=== PATIENT | male | born 1940 | race Caucasian/White ===

== ENCOUNTER → 2017-02-11 | Outpatient (CLI) | payer OTHER ==
[~2017-02-11] MED LIST: AMAN100C18 PO; ASPI-391 PO; BACL10TA PO; CARB25TA12 PO; CHOL100010 PO; DOCU-94 PO; DONE5TAB14 PO; MIRT15TA2 PO; RXC5 PO; SIMV10TA2 PO; TAMS0.4C38 PO
[2017-02-11 13:17] LABS: BASO % 0.3 %; BASO ABS # 0.02 K/uL (0-0.2); COMPLETE YES; EOS % 1.8 %; HEMATOCRIT 42.6 % (42-52); IG% 0.2 %; LYMPH % 22.5 %; MEAN CORPUSCULAR HEMOGLOBIN 32.2 pg (25-34); MONO % 10.6 %; NEUT % 64.6 %; PLATELET COUNT 213 K/uL (130-400); RED BLOOD COUNT 4.63 M/uL (4.7-6.1); WHITE BLOOD COUNT 6.23 K/uL (4.8-10.8)
[2017-02-11 13:26] LABS: ALT/SGPT 13 U/L (12-78); AST/SGOT 14 U/L (15-37); BLOOD UREA NITROGEN 14 mg/dl (7-18); BUN/CREATININE RATIO 14.5 (10-20); CALCIUM 8.8 mg/dl (8.5-10.1); CARBON DIOXIDE 27 mmol/L (21-32); CHLORIDE 110 mmol/L (98-107); CHOLESTEROL 141 mg/dl (0-200); CREATININE 0.97 mg/dl (0.60-1.40); GLUCOSE 89 mg/dl (70-99); POTASSIUM 4.1 mmol/L (3.5-5.1); SODIUM 143 mmol/L (136-145)
[2017-02-11 13:28] LABS: ALB/GLOB RATIO 1.2 (0.9-2); ALKALINE PHOSPHATASE 138 U/L (45-117); CHOLESTEROL/HDL RATIO 2.9; HDL CHOLESTEROL 48 mg/dl; TRIGLYCERIDES 84 mg/dl (0-150); VERY LOW DENSITY LIPOPROT CALC 17 mg/dl
== END | disposition home or self-care (01) ==
LOC: C.LABSPEC 08:45
PROVIDERS: ATTEND Internal Medicine
DX: Z00.00 Encounter for general adult medical examination without abnormal findings (principal); G20 Parkinson's disease; E78.5 Hyperlipidemia, unspecified

== ENCOUNTER → 2017-02-21 | Outpatient (CLI) | payer OTHER | END | disposition home or self-care (01) | LOC: C.LABSPEC 12:33 | PROVIDERS: ATTEND Internal Medicine | DX: Z12.11 Encounter for screening for malignant neoplasm of colon (principal) ==

== ENCOUNTER → 2018-03-02 | Outpatient (CLI) | payer OTHER | END | disposition home or self-care (01) | LOC: C.PATHSPEC 17:33 | PROVIDERS: ATTEND Internal Medicine | DX: C44.310 Basal cell carcinoma of skin of unspecified parts of face (principal) ==

== ENCOUNTER 2022-01-15 08:31 | Inpatient (IN) ==
--- NOTE | 2021-12-31 14:01 | PAT Medication Instructions ---
Medication Instructions Date of Service December 31, 2021 Home Medications amantadine HCl 100 mg tablet 100 mg PO QAM bxgcttn-lluacqybtfqds-oyijwdqz 250 mg-250 mg-65 mg tablet (Excedrin Extra Strength) 1 tab PO Q6H PRN carbidopa 25 mg-levodopa 100 mg tablet 1 tab PO BID cholecalciferol (vitamin D3) 50 mcg (2,000 unit) capsule (Vitamin D3) 50 mcg PO QAM docusate sodium 100 mg capsule 100 mg PO BID PRN donepezil 10 mg tablet 10 mg PO HS mirtazapine 15 mg tablet 15 mg PO HS sertraline 50 mg tablet 50 mg PO HS simvastatin 10 mg tablet 10 mg PO PM tamsulosin 0.4 mg capsule 0.4 mg PO QPM Continue as directed amantadine HCl 100 mg tablet 100 mg PO QAM ASK your surgeon for instructions djtkteq-zshpabjmijcxm-mwvchuoe 250 mg-250 mg-65 mg tablet (Excedrin Extra Strength) 1 tab PO Q6H PRN ASK your prescriber and surgeon mirtazapine 15 mg tablet 15 mg PO HS DO NOT take the morning of surgery cholecalciferol (vitamin D3) 50 mcg (2,000 unit) capsule (Vitamin D3) 50 mcg PO QAM docusate sodium 100 mg capsule 100 mg PO BID PRN Take morning of surgery With a small sip of water, OTHERWISE NOTHING TO EAT OR DRINK AFTER MIDNIGHT: carbidopa 25 mg-levodopa 100 mg tablet 1 tab PO BID Take evening before surgery carbidopa 25 mg-levodopa 100 mg tablet 1 tab PO BID docusate sodium 100 mg capsule 100 mg PO BID PRN (if needed) donepezil 10 mg tablet 10 mg PO HS sertraline 50 mg tablet 50 mg PO HS simvastatin 10 mg tablet 10 mg PO PM tamsulosin 0.4 mg capsule 0.4 mg PO QPM Other Notes If you have any questions please call us at [phone] or [phone] or [phone] or [phone]
--- NOTE | 2022-01-01 13:04 | Anesthesiology Consultation ---
Date of Service January 01, 2022 Assessment & Plan (1) Encounter for pre-operative examination: - COVID screening: Per assessment on 01/01: No known COVID-19 positive contacts or current COVID-19 related symptoms. Travel screen negative. Patient vaccinated. Surgeon arranging preop COVID testing. Awaiting results. - S/P C4 corpectomy, ACDF C5-7 (02/05/16): MAC#3, ETT 8 at [facility]. Mild, asymptomatic post-op tachycardia + also sore throat. Discharged on POD 3 without further issue/intervention. Chart Review Chart Review: Acceptable Risk for Surgery and Patient seen in Pre Admission Testing Teaching & Discussion Pre-Anesthesia Teaching/Discussion Notes: Instructed NPO after midnight before surgery,except medications with 15 cc of water. Medication instructions provided according to the PAT guidelines. History Surgery Operation Date: 01/15/22 10:05 Proposed Procedures p L4-S1 Decompression and Fusion Spinal Cord Monitoring - Rahat Fernandez, Height/Weight Height: 5 ft 6 in Weight: 63.5 kg Allergies Allergy/AdvReac Type Severity Reaction Status Date / Time Antiseptic solution Allergy Severe Uncoded 01/01/22 14:41 skin reaction/sensitivity with prior preop cleanser Medications Home Medications Medication Instructions Recorded Confirmed Last Taken amantadine HCl 100 mg tablet 100 mg PO QAM 12/31/21 12/31/21 Unknown axroaks-lyjcsohtesbdu-fyvhuarl 250 1 tab PO Q6H PRN 12/31/21 12/31/21 Unknown mg-250 mg-65 mg tablet (Excedrin Extra Strength) carbidopa 25 mg-levodopa 100 mg 1 tab PO BID 12/31/21 12/31/21 Unknown tablet cholecalciferol (vitamin D3) 50 50 mcg PO QAM 12/31/21 12/31/21 Unknown mcg (2,000 unit) capsule (Vitamin D3) docusate sodium 100 mg capsule 100 mg PO BID PRN 12/31/21 12/31/21 Unknown donepezil 10 mg tablet 10 mg PO HS 12/31/21 12/31/21 Unknown mirtazapine 15 mg tablet 15 mg PO HS 12/31/21 12/31/21 Unknown sertraline 50 mg tablet 50 mg PO HS 12/31/21 12/31/21 Unknown simvastatin 10 mg tablet 10 mg PO PM 12/31/21 12/31/21 Unknown tamsulosin 0.4 mg capsule 0.4 mg PO QPM 12/31/21 12/31/21 Unknown Past Medical History Medical History Anxiety Cancer BCC Cervical stenosis of spinal canal Enlarged prostate Hyperlipidemia Lumbar stenosis Migraine Hx Parkinson's disease Follows with Dr. Margo Macedo ([facility]) Deep brain stimulator ([employer], Will bring remote AM DOS) [employer] rep per pt > Tiffani Jewell, P: [phone] Exercise / Class Metabolic Activity III < 4 Walking/Shop/Light housework Past Family History Family History Father Family history of diabetes mellitus Uncle Family history of diabetes mellitus Past Surgical History Surgical History Elective surgery PLACEMENT DEEP BRAIN STIMULATOR (2016) REPLACEMENT BATTERIES (2020) History of cervical spinal surgery C4 corpectomy, ACDF C5-7 (02/05/16): MAC#3, ETT 8 at [facility]. Mild, asymptomatic post-op tachycardia + also sore throat. Discharged on POD 3 without further issue. History of colonoscopy Past Anesthesia History No Hx of Anesthesia Complications and No Family Hx of Anesthesia Complications History of PONV No Hx of PONV and No Hx of Motion Sickness Social History Smoking Status: Former smoker Do You Dip or Chew Tobacco: No Smoking End Date: Quit 45 years ago Hx Alcohol Use: No Hx Substance Use: No Review of Systems Patient denies chest pain, shortness of breath, fever, chills, cough, wheezing, palpitations. Physical Exam Vital Signs VITALS BP 102/67 (baseline BP low-normal range) P 70 TEMP SP02 98%RA RESP 16 PHYSICAL Mildly decreased cervical extension range of motion. Full TMJ range of motion. TMD 3.5 finger breaths Mallampati Score 2 Dentition: intact, + crowns/caps Lungs: clear throughout to auscultation Cardiac: regular rate and rhythm, no murmurs noted Spine: normal Carotid arteries: negative bruit Extremities: no edema Lab Results Anesthesia Preop Results Results Anesthesia Widget: WBC 7.39 K/uL (4.8-10.8) 01/01/22 Hgb 14.1 g/dL (14.0-18.0) 01/01/22 Hct 40.3 % (42-52) L 01/01/22 Plt 237 K/uL (130-400) 01/01/22 Na 139 mmol/L (136-145) 01/01/22 K 4.1 mmol/L (3.5-5.1) 01/01/22 Cl 106 mmol/L (98-107) 01/01/22 CO2 28 mmol/L (21-32) 01/01/22 BUN 17 mg/dl (6-23) 01/01/22 Creat 1.00 mg/dl (0.6-1.4) 01/01/22 Glucose Level 124 mg/dl (70-99(Fasting)) H 01/01/22 PT 10.6 Seconds (9.0-12.0) 01/01/22 PTT 24.8 Seconds (21.0-31.0) 01/01/22 INR 1.0 (0.9-1.1) 01/01/22 Urine Color Yellow 01/01/22 Urine Appearance Clear (Clear) 01/01/22 Urine pH 7.5 (4.5-7.5) 01/01/22 Urine Specific [place] 1.022 (1.000-1.030) 01/01/22 Urine Protein Negative (Negative) 01/01/22 Urine Glucose (UA) Negative (Negative) 01/01/22 Urine Ketones Trace (Negative) H 01/01/22 Urine Blood Negative (Negative) 01/01/22 Urine Nitrite Negative (Negative) 01/01/22 Urine Bilirubin Negative (Negative) 01/01/22 Urine Urobilinogen Negative (Negative) 01/01/22 Urine Leukocyte Esterase 3+ (Negative) H 01/01/22 Urine WBC (Auto) 10-30 /hpf (0-5) H 01/01/22 Urine RBC (Auto) 0-4 /hpf (0-4) 01/01/22 Urine Hyaline Casts (Auto) 1-5 /lpf (0-5) 01/01/22 Urine Epithelial Cells (Auto) 10-20 /lpf (0-5) H 01/01/22 Urine Bacteria (Auto) Negative (Negative) 01/01/22 Blood Type A Positive 01/01/22 Antibody Screen NEGATIVE 01/01/22 Testing Electrocardiogram Date: 01/01/22 NSR at 63bpm. RBBB. Chest X-Ray Date: 01/01/22 FINDINGS: No pneumothorax. No pleural effusions. The heart is normal in size. The lungs are clear. Cervical spinal fusion hardware is noted. Stimulator packs are noted within the upper chest. IMPRESSION: No acute process.
[~2022-01-15 08:31] MED LIST changes: +ACETAMINOPHEN 500 MG TAB PO SCH; -AMAN100C18 PO; -ASPI-391 PO; -BACL10TA PO; -CARB25TA12 PO; -CHOL100010 PO; +CeleBREX 200 MG CAP PO SCH; -DOCU-94 PO; -DONE5TAB14 PO; +GABAPENTIN 300 MG CAP PO SCH; +LR 15ML/HR IV SCH; -MIRT15TA2 PO; -RXC5 PO; -SIMV10TA2 PO; -TAMS0.4C38 PO; +ceFAZolin 1000MG 1,000 MG/7.5 ML SYR IV SCH
[2022-01-15] MEDS ORDERED: PROPOFOL IV EMULSION 10 MG/ML 20 ML VIAL IV ONE (08:54)
[2022-01-15] MEDS ORDERED: MIDAZOLAM HCL 1 MG/ML 2ML VIAL ONE (08:54)
[2022-01-15] MEDS ORDERED: LIDOCAINE 2% 2 ML VIAL/AMP(20MG/ML) INFIL ONE (08:54)
[2022-01-15] MEDS ORDERED: fentaNYL citrate 100 MCG/2 ML VIAL ONE (08:54)
[2022-01-15] MEDS ORDERED: ROCURONIUM BROMIDE 10 MG/ML 5 ML VIAL IV ONE (08:54)
[2022-01-15] MEDS ORDERED: ATROPINE SULFATE 0.1 MG/ML 10ML SYR IV PRN (09:42)
[2022-01-15] MEDS ORDERED: ePHEDrine sulfate 50 MG/ML AMP IV PRN (09:42)
[2022-01-15] MEDS ORDERED: ONDANSETRON INJ 2 MG/ML 2 ML VIAL IV PRN ×2 (09:42→14:49)
[2022-01-15] MEDS ORDERED: fentaNYL citrate 100 MCG/2 ML VIAL IV PRN (09:42)
[2022-01-15] MEDS ORDERED: HYDROmorphone INJ 1 MG/ML SYRINGE IV PRN ×2 (09:42→14:49)
--- NOTE | 2022-01-15 10:00 | History & Physical Bridge Note ---
Date of Service January 15, 2022 History & Physical Bridge Note I have examined the patient, reviewed the History & Physical and in the interval since the performance of the History & Physical I have noted the following changes of clinical significance: no changes noted
--- NOTE | 2022-01-15 10:03 | History & Physical Report ---
Date of Service January 15, 2022 Assessment & Plan (1) Neurogenic claudication due to lumbar spinal stenosis: Plan: L4-S1 decompression and fusion History of Present Illness Chief Complaint: Back and leg pain Primary Care Provider: Polina Hoang This is an 81-year-old male with presents with chronic back and leg pain after failing course of nonoperative care is here for surgical invention. Allergies Allergy/AdvReac Type Severity Reaction Status Date / Time Antiseptic solution Allergy Intermediate Severe Uncoded 01/15/22 09:11 skin reaction/sensitivity with prior preop cleanser Home Medications Medication Instructions Recorded Confirmed Type amantadine HCl 100 mg tablet 100 mg PO QAM 12/31/21 01/15/22 History dhkprhn-hbjqsbhunyvhh-yhedaucp 250 1 tab PO Q6H PRN 12/31/21 01/15/22 History mg-250 mg-65 mg tablet (Excedrin Extra Strength) carbidopa 25 mg-levodopa 100 mg 1 tab PO BID 12/31/21 01/15/22 History tablet cholecalciferol (vitamin D3) 50 50 mcg PO QAM 12/31/21 01/15/22 History mcg (2,000 unit) capsule (Vitamin D3) docusate sodium 100 mg capsule 100 mg PO BID PRN 12/31/21 01/15/22 History donepezil 10 mg tablet 10 mg PO HS 12/31/21 01/15/22 History mirtazapine 15 mg tablet (Remeron) 15 mg PO HS 12/31/21 01/15/22 History sertraline 50 mg tablet 50 mg PO HS 12/31/21 01/15/22 History simvastatin 10 mg tablet 10 mg PO PM 12/31/21 01/15/22 History tamsulosin 0.4 mg capsule 0.4 mg PO QPM 12/31/21 01/15/22 History Past Med/Surg History Medical History Anxiety Cancer BCC Cervical stenosis of spinal canal Enlarged prostate Hyperlipidemia Lumbar stenosis Migraine Hx Parkinson's disease Follows with Dr. Margo Macedo ([facility]) Deep brain stimulator ([employer], Will bring remote AM DOS) [employer] rep per pt > Tiffani Jewell, P: [phone] Surgical History Elective surgery PLACEMENT DEEP BRAIN STIMULATOR (2016) REPLACEMENT BATTERIES (2020) History of cervical spinal surgery C4 corpectomy, ACDF C5-7 (02/05/16): MAC#3, ETT 8 at [facility]. Mild, asymptomatic post-op tachycardia + also sore throat. Discharged on POD 3 without further issue. History of colonoscopy Family History Father Family history of diabetes mellitus Uncle Family history of diabetes mellitus Social History (Updated 12/31/21 @ 11:19 by Loni Hoover, RN) Smoking Status: Former smoker Smoking End Date: Quit 45 years ago; Second Hand Exposure: Yes; Do You Dip or Chew Tobacco: No; Hx Alcohol Use: No Hx Substance Use: No Preferred Language: [place] African Communication Ability: Effective Rhit Required: No Beliefs That Will Affect Care: None marital status: Current Living Situation: Spouse Current Living Situation Comment: [facility] current occupational status: retired current occupation: RETIRED PHARMACIST Other Information That Helps Us Care for You: No Feels Safe at Home: Yes Safety Concerns: Feels Safe At This Time Assistive Devices: Glasses and Walker Physical Exam Physical Exam: Patient is alert and oriented Heart regular rhythm Lungs clear Results & Data Results & Data ([facility]) Vital Signs (Past 12 Hours) Vital Signs Temp Pulse Resp BP Pulse Ox 01/15/22 09:22 36.5 C 63 18 109/69 98
[2022-01-15] MEDS ORDERED: BUPIVACAINE/EPINEPHRINE 0.25% 1:200,000 30 ML VIAL ONE (10:21)
[2022-01-15] MEDS ORDERED: ceFAZolin 330 MG/ML 1 GM VIAL ONE (10:22)
[2022-01-15] MEDS ORDERED: ePHEDrine sulfate 50 MG/ML AMP ONE (11:06)
[2022-01-15] MEDS ORDERED: ONDANSETRON INJ 2 MG/ML 2 ML VIAL ONE (11:16)
[2022-01-15] MEDS ORDERED: DEXAMETHASONE SOD INJ 4 MG/ML VIAL ONE (11:16)
[2022-01-15] MEDS ORDERED: FLOSEAL HEMOSTATIC MATRIX 10ML TOP ONE (11:24)
[2022-01-15] MEDS ORDERED: VASOPRESSIN 20 UNIT/ML VIAL ONE (11:31)
[2022-01-15] MEDS ORDERED: GLYCOPYRROLATE 0.2 MG/ML VIAL ONE ×2 (11:31→12:36)
--- NOTE | 2022-01-15 12:33 | Operative Report ---
Post Operative Report Pre & Post Diagnosis Operation Date: 01/15/22 10:05 Pre-Op Diagnosis: Neurogenic claudication due to lumbar spinal stenosis. Post-Op Diagnosis: Neurogenic claudication due to lumbar spinal stenosis. I identified the patient and participated in the time-out.: Yes Procedure Operation Date: 01/15/22 10:05 Actual Procedures Decompression with bilateral medial facetectomies and foraminotomies L3-L4, L4- L5 and L5-S1. #2 posterior spinal fusion L4-S1. #3 placement posterior instrumentation L4 L5-S1. #4 placement locally harvested morselized autograft in the posterior gutters. #5 placement of I factor combined with the talus in the posterior gutters L4-S1. Surgeon Rahat Fernandez, DO Printing Roller Handler Trever Ferguson Estimated Blood Loss 100 Findings Consistent with Post-Op Diagnosis Specimens None Indications This is a 81-year-old male well-known to me the presents with neurogenic medication after failing course of nonoperative care is here for surgical intervention. Description of Procedure Patient was met with identified informed consent obtained. Patient was then taken to the operative suite underwent ablation placed in a prone position the [place] table top [place] frame. All bony prominences well-padded eyes inspected to ensure no external pressure placed upon the. This point lumbar spine was prepped and draped in normal sterile fashion. Sharp dissection with the assistance of Bovie cautery was performed down to and exposing the lamina fox sverse processes of L4-L5 and the sacral ala bilaterally. From a caudal to cephalad fashion complete laminectomy of L5 L4 and partial laminectomy of L3 was performed including bilateral medial facetectomies and foraminotomies addressing severe spinal stenosis. Pedicle screws were then placed in L4-L5 and S1 levels with the exception of L5 on the right as it was too sclerotic to hold a screw. Proper size rods were then placed locked into position bilaterally. The transverse processes of L 4 L5 and sacral ala burred to subcortical being bone. Locally harvested morselized autograft I factor and V toss was then placed in the posterior gutters. 15 round LIZA drain inserted. The incision was then closed with 1 Vicryl to fascia 2-0 Vicryl subcutaneously and 4 Monocryl for final skin closure. Steri-Strip sterile dressings placed. Patient waken taken PACU stable condition. Please note Trever Ferguson was present out the entire procedure involved the patient positioning complex portions of the surgery and fascial closure. I attest to the content of the Intraoperative Record and any orders documented therein. Any exceptions are noted below.
[2022-01-15] MEDS ORDERED: NEOSTIGMINE METHYLSULFATE 1 MG/ML 10ML VIAL ONE (12:36)
--- NOTE | 2022-01-15 13:15 | Fluoroscopy Report ---
INTRAOPERATIVE RADIOGRAPHS CLINICAL HISTORY: L4-S1 spinal fusion. Fluoroscopy time: 24 seconds. FINDINGS: 2 spot fluoroscopic views of the lumbar spine are presented. There has been laminectomy and posterior fusion at L4-S1. Interpedicular screws are present at all levels. The orthopedic hardware appears intact. IMPRESSION: Intraoperative images from lumbar spinal fusion surgery as above. Electronically signed by: Den Griggs M.D. 01/15/2022 1:13 PM
--- NOTE | 2022-01-15 14:09 | Anesthesiology Progress Note ---
Date of Service January 15, 2022 Anesthesia Post Procedure Vital Signs Vital Signs: Temp Pulse Pulse Resp BP Pulse Ox 01/15/22 14:05 76 12 112/65 97 01/15/22 13:55 84 12 128/69 98 01/15/22 13:45 78 16 113/70 99 01/15/22 13:35 85 15 123/68 100 01/15/22 13:25 83 14 122/67 99 01/15/22 13:15 86 11 L 131/71 100 01/15/22 13:05 91 H 9 L 128/74 100 01/15/22 12:55 97.2 F L 98 H 14 124/75 100 01/15/22 09:22 97.7 F 63 18 109/69 98 Transfer of Care Handoff Completed per policy Notes Mental Status: alert / awake / arousable and participated in evaluation Patient Amnestic to Procedure: Yes Nausea / Vomiting: adequately controlled Pain: adequately controlled Airway Patency, RR, SpO2: stable & adequate BP & HR: stable & adequate Hydration State: stable & adequate Anesthetic Complications: no major complications apparent and Pt Satisfied with anesthetic care
[2022-01-15] MEDS ORDERED: ONDANSETRON 4 MG OD TAB PO PRN (14:49)
[2022-01-15] MEDS ORDERED: hydrOXYzine HCl 25 MG TAB PO PRN (14:49)
[2022-01-15] MEDS ORDERED: HYDROmorphone INJ 0.5 MG/0.5 ML SYR IV PRN (14:49)
[2022-01-15] MEDS ORDERED: MAGNESIUM HYDROXIDE SUSP 30 ML UDC PO PRN (14:49)
[2022-01-15] MEDS ORDERED: SOD PHOSPHATE/SOD BIPHOSPHATE ENEMA 132 ML BTL PR PRN (14:49)
[2022-01-15] MEDS ORDERED: PROMETHAZINE HCL 12.5 MG in SODIUM CHLORIDE 0.9% 50 ML IV PRN (14:49)
[2022-01-15] MEDS ORDERED: ACETAMINOPHEN 500 MG TAB PO PRN (14:49)
[2022-01-15] MEDS ORDERED: FAMOTIDINE 20 MG TAB PO PRN (14:49)
[2022-01-15] MEDS ORDERED: bisacodyL 10 MG SUPP PR PRN (14:49)
[2022-01-15] MEDS ORDERED: DO NOT ADMINISTER FLU VACCINE PRN (14:49)
[2022-01-15] MEDS ORDERED: DOCUSATE SODIUM 100 MG CAP PO PRN (14:49)
[2022-01-15] MEDS ORDERED: ALUMINUM/MAGNESIUM SUSP 30 ML UDC PO PRN (14:49)
[2022-01-15] MEDS ORDERED: oxyCODONE HCL IR 5 MG TAB (IMMEDIATE RELEASE) PO PRN (14:49)
[2022-01-15] MEDS ORDERED: LORazepam 0.5 MG TAB PO PRN (14:49)
[2022-01-15] MEDS ORDERED: DO NOT ADMINISTER PNEUMOCOCCAL VACCINE PRN (14:49)
[2022-01-15] MEDS ORDERED: LORazepam 0.5 MG in SYRINGE 0.25 ML IV PRN (14:49)
[2022-01-15] MEDS ORDERED: METOCLOPRAMIDE HCL INJ 5 MG/ML 2 ML VIAL IV PRN (14:49)
[2022-01-15] MEDS ORDERED: diphenhydrAMINE Capsule 25 MG CAP PO PRN (14:49)
[2022-01-15] MEDS ORDERED: NALOXONE HCL 0.4 MG/1 ML VIAL/CARP IV PRN (14:49)
[2022-01-15] MEDS ORDERED: ACETAMINOPHEN 1,000 MG/100 ML VIAL IV PRN (14:49)
[2022-01-15] MEDS: LACTATED RINGER'S 1,000 ML IV SCH ×2 (14:50→23:31)
[2022-01-15] MEDS ORDERED: Nursing to Pharmacy Communication SCH (17:30)
[2022-01-15] MEDS ORDERED: CARBIDOPA/LEVODOPA 25/100MG TAB PO SCH (18:00)
[2022-01-15] MEDS: ceFAZolin 1000MG 1,000 MG/7.5 ML SYR IV SCH (18:40)
[2022-01-15] MEDS: CARBIDOPA/LEVODOPA 25/100MG TAB PO SCH (18:44)
--- NOTE | 2022-01-15 19:20 | Hospitalist Consultation ---
Date of Consultation January 15, 2022 Assessment & Plan (1) Neurogenic claudication due to lumbar spinal stenosis: (2) Parkinson disease: S/p L4-S1 decompression and fusion surgery today by Dr Fernandez POD#0 EBL 100cc Pain management, activity and DVT ppx per Primary team Check CBC and BMP in AM Advance diet as appropriate Patient's reports she has turned on his DBS that was turned off for surgery. Continue carbidopa-levodopa Continue home meds Remove joe tomorrow Thank you for the consult. History of Present Illness Reason for Consultation: Post op medical management Requesting Physician: Rahat Fernandez DO Attending Physician: Rahat Fernandez DO History of Present Illness 81 year old man with history of Parkinson's disease who had L4-S1 decompression and fusion surgery today by Dr. Fernandez. Patient seen after returning from the OR. Reports minimal surgical site pain at this time. Denies nausea, vomiting, abdominal pain. Yet to pass flatus. Has bradykinesia due to his Parkinson's per who was at bedside Allergies Allergy/AdvReac Type Severity Reaction Status Date / Time Antiseptic solution Allergy Intermediate Severe Uncoded 01/15/22 09:11 skin reaction/sensitivity with prior preop cleanser Home Medications Medication Instructions Recorded Confirmed Type amantadine HCl 100 mg tablet 100 mg PO QAM 12/31/21 01/15/22 History bkqfaca-iikscwuhsmtlm-ulkzhpwj 250 1 tab PO Q6H PRN 12/31/21 01/15/22 History mg-250 mg-65 mg tablet (Excedrin Extra Strength) carbidopa 25 mg-levodopa 100 mg 1 tab PO BID 12/31/21 01/15/22 History tablet cholecalciferol (vitamin D3) 50 50 mcg PO QAM 12/31/21 01/15/22 History mcg (2,000 unit) capsule (Vitamin D3) docusate sodium 100 mg capsule 100 mg PO BID PRN 12/31/21 01/15/22 History donepezil 10 mg tablet 10 mg PO HS 12/31/21 01/15/22 History mirtazapine 15 mg tablet (Remeron) 15 mg PO HS 12/31/21 01/15/22 History sertraline 50 mg tablet 50 mg PO HS 12/31/21 01/15/22 History simvastatin 10 mg tablet 10 mg PO PM 12/31/21 01/15/22 History tamsulosin 0.4 mg capsule 0.4 mg PO QPM 12/31/21 01/15/22 History Patient History Medical History Anxiety Cancer BCC Cervical stenosis of spinal canal Enlarged prostate Hyperlipidemia Lumbar stenosis Migraine Hx Parkinson's disease Follows with Dr. Margo Macedo ([facility]) Deep brain stimulator ([employer], Will bring remote AM DOS) [employer] rep per pt > Tiffani Jewell, P: [phone] Surgical History Elective surgery PLACEMENT DEEP BRAIN STIMULATOR (2016) REPLACEMENT BATTERIES (2020) History of cervical spinal surgery C4 corpectomy, ACDF C5-7 (02/05/16): MAC#3, ETT 8 at [facility]. Mild, asymptomatic post-op tachycardia + also sore throat. Discharged on POD 3 without further issue. History of colonoscopy Family History Father Family history of diabetes mellitus Uncle Family history of diabetes mellitus Social History (Updated 12/31/21 @ 11:19 by Loni Hoover RN) Smoking Status: Former smoker Smoking End Date: Quit 45 years ago; Second Hand Exposure: Yes; Do You Dip or Chew Tobacco: No; Hx Alcohol Use: No Hx Substance Use: No Preferred Language: Citizen Of [place] Communication Ability: Effective Dish Person Required: No Beliefs That Will Affect Care: None marital status: Current Living Situation: Spouse Current Living Situation Comment: [facility] current occupational status: retired current occupation: RETIRED PHARMACIST Other Information That Helps Us Care for You: No Feels Safe at Home: Yes Safety Concerns: Feels Safe At This Time Assistive Devices: Glasses and Walker Review of Systems Review of Systems: All systems reviewed & are unremarkable except as noted in HPI & below Physical Exam Constitutional: + well hydrated; no acute distress Eyes: PERRL, conjunctivae normal, anicteric sclerae ENMT: external ear and nose normal, oropharynx normal Respiratory: normal respiratory effort, lungs clear to auscultation Cardiovascular: Rate/Rhythm: regular rate and regular rhythm S1 S2 Gastrointestinal (Abdomen): normal bowel sounds, soft, nontender, no hepatosplenomegaly Musculoskeletal: No pedal edema Drain in situ at surgical site Neurologic: PERRL, EOMI, accommodation nl, no face palsy, no dysarthria Psychiatric: A+Ox3, euthymic affect Genitourinary: Joe in situ Results & Data Results & Data ([facility]) Vital Signs (Past 12 Hours) Vital Signs Temp Pulse Pulse Resp BP Pulse Ox 01/15/22 18:00 36.2 C L 71 14 120/67 97 01/15/22 17:12 36.3 C L 85 18 106/65 97 01/15/22 16:45 67 14 108/63 97 01/15/22 16:15 36.3 C L 63 18 102/55 L 96 01/15/22 15:45 81 12 115/65 97 01/15/22 15:30 67 15 107/61 96 01/15/22 15:15 64 11 L 106/61 95 01/15/22 15:00 78 12 114/63 95 01/15/22 14:45 81 14 114/80 96 01/15/22 14:35 94 H 14 135/75 96 01/15/22 14:25 77 12 112/67 96 01/15/22 14:15 79 11 L 115/62 96 01/15/22 14:05 76 12 112/65 97 01/15/22 13:55 84 12 128/69 98 01/15/22 13:45 78 16 113/70 99 01/15/22 13:35 85 15 123/68 100 01/15/22 13:25 83 14 122/67 99 01/15/22 13:15 86 11 L 131/71 100 01/15/22 13:05 91 H 9 L 128/74 100 01/15/22 12:55 36.2 C L 98 H 14 124/75 100 01/15/22 09:22 36.5 C 63 18 109/69 98
[2022-01-15] MEDS: DOCUSATE SODIUM/SENNA 50/8.6MG TAB PO SCH (21:28)
[2022-01-15] MEDS: SERTRALINE HCL 50 MG TABLET PO SCH (21:34)
[2022-01-15] MEDS: TAMSULOSIN HCL 0.4 MG CAP PO SCH (21:34)
[2022-01-15] MEDS: SIMVASTATIN 10 MG TAB PO SCH (22:03)
[2022-01-15] MEDS: MIRTAZAPINE TAB 15 MG TAB PO SCH (22:04)
[2022-01-15] MEDS: DONEPEZIL HCL 10 MG TAB PO SCH (22:04)
[2022-01-16] MEDS: ceFAZolin 1000MG 1,000 MG/7.5 ML SYR IV SCH (02:09)
[2022-01-16] MEDS: traMADol HCL 50 MG TABLET PO PRN (03:29)
[2022-01-16] MEDS: POLYETHYLENE (MIRALAX) 17 GM PACK PO SCH ×3 (05:58→17:21)
[2022-01-16 07:22] LABS: Basophils # (auto) 0.01 K/uL (0-0.2); Basophils % (auto) 0.1 %; Eosinophils # (auto) 0.02 K/uL (0-0.5); Eosinophils % (auto) 0.1 %; Hematocrit (blood only) 33.1 % (42-52); Hemoglobin 11.9 g/dL (14.0-18.0); Immature Granulocytes # (auto) 0.03 K/uL (0.00-0.02); Immature Granulocytes % (auto) 0.2 %; Lymphocytes # (auto) 1.43 K/uL (1.2-3.4); Lymphocytes % (auto) 10.5 %; Mean Corpuscular Hemoglobin 32.7 pg (25-34); Mean Corpuscular Volume 90.9 fL (80-100); Mean Platelet Volume 9.4 fL (7.4-10.4); Monocytes # (auto) 1.27 K/uL (0.11-0.59); Monocytes % (auto) 9.3 %; Neutrophils # (auto) 10.85 K/uL (1.4-6.5); Neutrophils % (auto) 79.8 %; Platelet Count 187 K/uL (130-400); RDW Coefficient of Variation 12.6 % (11.5-14.5); RDW Standard Deviation 41.9 fL (36.4-46.3); Red Blood Count 3.64 M/uL (4.7-6.1); White Blood Count 13.61 K/uL (4.8-10.8)
[2022-01-16 07:43] LABS: BUN Creatinine Ratio 17.3 (10-20); Calcium 8.3 mg/dl (8.5-10.1); Est GFR (African American) 97.3 ml/min; Est GFR (Non-African American) 83.9 ml/min; Potassium 3.9 mmol/L (3.5-5.1)
[2022-01-16] MEDS: CARBIDOPA/LEVODOPA 25/100MG TAB PO SCH ×2 (08:05→17:19)
[2022-01-16] MEDS: CHOLECALCIFEROL 1,000 UNITS 25 MCG TAB PO SCH (08:05)
[2022-01-16] MEDS: AMANTADINE HCL 100 MG CAPSULE PO SCH (08:05)
[2022-01-16] MEDS: dexAMETHasone 6 MG in SYRINGE 0 ML IV SCH (08:06)
[2022-01-16] MEDS ORDERED: CARBIDOPA/LEVODOPA 25/100MG TAB PO SCH (09:00)
--- NOTE | 2022-01-16 09:43 | Orthopedic Progress Note ---
Date of Service January 16, 2022 Assessment & Plan (1) Neurogenic claudication due to lumbar spinal stenosis: Plan: This time initiate physical therapy monitor his LIZA output. We may need to consider rehab placement on Tuesday depending on his results with occupational a nd physical therapy. We will determine this on Tuesday. Admission and Anticipated Discharge Date Admission Date: January 15, 2022 Subjective Patient's back pain is controlled leg symptoms improved Physical Exam Physical Exam: Patient is injured the bedside. Is good strength testing. Results & Data ([facility]) Vital Signs (Past 12 Hours) Vital Signs Temp Pulse Resp BP Pulse Ox 01/16/22 07:18 36.2 C L 60 16 112/68 99 01/16/22 04:46 36.6 C 65 18 112/65 96 01/16/22 00:44 36.6 C 75 18 110/63 96
[2022-01-16] MEDS ORDERED: Nursing to Pharmacy Communication SCH (18:45)
[2022-01-16] MEDS: SERTRALINE HCL 50 MG TABLET PO SCH (20:18)
[2022-01-16] MEDS: MIRTAZAPINE TAB 15 MG TAB PO SCH (20:18)
[2022-01-16] MEDS: DOCUSATE SODIUM/SENNA 50/8.6MG TAB PO SCH (20:21)
[2022-01-16] MEDS: SIMVASTATIN 10 MG TAB PO SCH (21:51)
[2022-01-16] MEDS: DONEPEZIL HCL 10 MG TAB PO SCH (21:51)
[2022-01-16] MEDS: TAMSULOSIN HCL 0.4 MG CAP PO SCH (21:51)
--- NOTE | 2022-01-16 23:33 | Hospitalist Progress Note ---
Date of Service January 16, 2022 Assessment & Plan (1) Neurogenic claudication due to lumbar spinal stenosis: (2) Parkinson disease: Plan: S/p L4-S1 decompression and fusion surgery performed on 01/15/[address] Fernandez No postop complication noted Continue pain control Continue incentive spirometry Hemoglobin stable at 11.9 PT OT eval Fall precaution Parkinson disease Patient's reports she has turned on his DBS that was turned off for surgery. Continue carbidopa-levodopa Continue home meds Remove joe tomorrow Thank you for the consult. Admission and Anticipated Discharge Date Admission Date: January 15, 2022 Subjective Patient was seen and eval examined for postop follow-up Sitting in chair in no acute distress with son and at bedside Patient said pain is controlled Denies any chest pain, potation, dizziness, shortness of breath. Review of Systems Review of Systems: All systems reviewed & are unremarkable except as noted in Subjective Physical Exam Physical Exam: General- No acute distress Head- atraumatic Eyes- PERRL, EOMI, ENT- oropharynx clear Neck- supple, no JVD Lungs- clear to auscultation Heart- regular rhythm; no murmur Abdomen- normal bowel sounds, soft, nontender Extremities- no calf tenderness Neuro- alert, oriented x 3; PERRL, EOMI; no facial palsy; no dysarthria Skin- warm & dry Results & Data Results & Data ([facility]) Vital Signs (Past 12 Hours) Vital Signs Temp Pulse Resp BP Pulse Ox 01/16/22 22:21 36.5 C 66 18 101/63 96 01/16/22 15:40 36.4 C L 70 16 123/64 01/16/22 12:00 36.8 C 65 16 136/73 94
[2022-01-17 07:27] LABS: Hematocrit (blood only) 33.2 % (42-52); Hemoglobin 11.6 g/dL (14.0-18.0); Mean Corpuscular Hemoglobin 32.1 pg (25-34); Mean Corpuscular Hgb Conc 34.9 g/dL (32-36); Mean Platelet Volume 9.4 fL (7.4-10.4); Platelet Count 184 K/uL (130-400); RDW Coefficient of Variation 12.7 % (11.5-14.5); RDW Standard Deviation 42.7 fL (36.4-46.3); Red Blood Count 3.61 M/uL (4.7-6.1); White Blood Count 13.09 K/uL (4.8-10.8)
[2022-01-17] MEDS: CHOLECALCIFEROL 1,000 UNITS 25 MCG TAB PO SCH (08:41)
[2022-01-17] MEDS: dexAMETHasone 6 MG in SYRINGE 0 ML IV SCH (08:41)
[2022-01-17] MEDS: CARBIDOPA/LEVODOPA 25/100MG TAB PO SCH ×2 (08:41→17:06)
[2022-01-17] MEDS: AMANTADINE HCL 100 MG CAPSULE PO SCH (08:42)
--- NOTE | 2022-01-17 09:17 | Orthopedic Progress Note ---
Date of Service January 17, 2022 Assessment & Plan (1) Neurogenic claudication due to lumbar spinal stenosis: Plan: Patient will continue with physical therapy today. DVT prophylaxis is in the form of teds and SCDs. Continue with pain control. Maintain LIZA drain and d ressing. Anticipate discharge to home versus rehab within the next 24 to 48 hours. Admission and Anticipated Discharge Date Admission Date: January 15, 2022 Kalli Hancock is postoperative day 2 lumbar decompression instrumented fusion L4-S1. He is doing well. Still has some intermittent pain down both legs but it is improving. He is passing flatus but no bowel movement. H&H is morning are 11.6 and 33.2 respectively. LIZA drain output last shift was 10 cc. Yesterday in physical therapy he was ambling roughly 360 feet. Review of Systems Review of Systems: All systems reviewed & are unremarkable except as noted in HPI & below Physical Exam Physical Exam: He sitting in a chair eating breakfast in no acute distress Alert and oriented x3 Lumbar dressing is clean dry and intact with functioning LIZA drain Strength is intact bilateral lower extremities Calf soft nontender bilaterally Results & Data ([facility]) Vital Signs (Past 12 Hours) Vital Signs Temp Pulse Resp BP Pulse Ox 01/17/22 07:33 36.5 C 67 18 123/70 97 01/16/22 22:21 36.5 C 66 18 101/63 96
[2022-01-17] MEDS: traMADol HCL 50 MG TABLET PO PRN ×2 (09:39→20:27)
[2022-01-17] MEDS: SERTRALINE HCL 50 MG TABLET PO SCH (20:27)
[2022-01-17] MEDS: TAMSULOSIN HCL 0.4 MG CAP PO SCH (20:27)
[2022-01-17] MEDS: DOCUSATE SODIUM/SENNA 50/8.6MG TAB PO SCH (20:28)
[2022-01-17] MEDS: DONEPEZIL HCL 10 MG TAB PO SCH (21:42)
[2022-01-17] MEDS: MIRTAZAPINE TAB 15 MG TAB PO SCH (21:42)
[2022-01-17] MEDS: SIMVASTATIN 10 MG TAB PO SCH (21:42)
--- NOTE | 2022-01-17 23:37 | Hospitalist Progress Note ---
Date of Service January 17, 2022 Assessment & Plan (1) Neurogenic claudication due to lumbar spinal stenosis: (2) Parkinson disease: Plan: S/p L4-S1 decompression and fusion surgery performed on 01/15/[address] Fernandez No postop complication noted Continue pain control Continue incentive spirometry Hemoglobin stable at 11.6 PT OT eval Fall precaution Parkinson disease Patient's reports she has turned on his DBS that was turned off for surgery. Continue carbidopa-levodopa Continue home meds stable Thank you for the consult. Admission and Anticipated Discharge Date Admission Date: January 15, 2022 Subjective Patient was seen andl examined for postop follow-up Sitting in chair in no acute distress Patient said pain is controlled He participated with therapy today. He said that during therapy his thigh kept getting stiff Denies any chest pain, potation, dizziness, shortness of breath. Review of Systems Review of Systems: All systems reviewed & are unremarkable except as noted in Subjective Physical Exam Physical Exam: General- No acute distress Head- atraumatic Eyes- PERRL, EOMI, ENT- oropharynx clear Neck- supple, no JVD Lungs- clear to auscultation Heart- regular rhythm; no murmur Abdomen- normal bowel sounds, soft, nontender Extremities- no calf tenderness Neuro- alert, oriented x 3; PERRL, EOMI; no facial palsy; no dysarthria Skin- warm & dry Results & Data Results & Data ([facility]) Vital Signs (Past 12 Hours) Vital Signs Temp Pulse Resp BP Pulse Ox 01/17/22 22:16 36.6 C 62 18 132/96 98 01/17/22 15:54 36.4 C L 65 20 106/68 97
[2022-01-18] MEDS: AMANTADINE HCL 100 MG CAPSULE PO SCH (07:48)
[2022-01-18] MEDS: CHOLECALCIFEROL 1,000 UNITS 25 MCG TAB PO SCH (07:48)
[2022-01-18] MEDS: CARBIDOPA/LEVODOPA 25/100MG TAB PO SCH (07:48)
[2022-01-18] MEDS: dexAMETHasone 6 MG in SYRINGE 0 ML IV SCH (07:49)
--- NOTE | 2022-01-18 10:09 | Orthopedic Progress Note ---
Date of Service January 18, 2022 Assessment & Plan (1) Neurogenic claudication due to lumbar spinal stenosis: Plan: This time continue physical therapy we will discontinue his drain and dressing today. Plan for possible discharge tomorrow. Admission and Anticipated Discharge Date Admission Date: January 15, 2022 Subjective Patient's will ambulate the halls with a walker. His back pain is controlled. He struggling with some left buttock discomfort but overall improved. Physical Exam Physical Exam: On exam he is ambulating the halls a somewhat stooped. He is not in distress. Results & Data ([facility]) Vital Signs (Past 12 Hours) Vital Signs Temp Pulse Resp BP Pulse Ox 01/18/22 07:43 36.6 C 58 L 16 131/76 100 01/17/22 22:16 36.6 C 62 18 132/96 98
[2022-01-18] MEDS: traMADol HCL 50 MG TABLET PO PRN (11:48)
--- NOTE | 2022-01-18 12:47 | Hospitalist Progress Note ---
Date of Service January 18, 2022 Assessment & Plan (1) Neurogenic claudication due to lumbar spinal stenosis: (2) Parkinson disease: Plan: S/p L4-S1 decompression and fusion surgery performed on 01/15/[address] Fernandez No postop complication noted Continue pain control Continue incentive spirometry Hemoglobin stable at 11.6 PT OT eval Fall precaution Parkinson disease Patient's reports she has turned on his DBS that was turned off for surgery. Continue carbidopa-levodopa Continue home meds stable Thank you for the consult. Admission and Anticipated Discharge Date Admission Date: January 15, 2022 Subjective Patient was seen andl examined for postop follow-up Sitting in chair in no acute distress as he just finished eating Patient said pain is controlled He is looking forward to go home today Denies any chest pain, potation, dizziness, shortness of breath. Review of Systems Review of Systems: All systems reviewed & are unremarkable except as noted in Subjective Physical Exam Physical Exam: General- No acute distress Head- atraumatic Eyes- PERRL, EOMI, ENT- oropharynx clear Neck- supple, no JVD Lungs- clear to auscultation Heart- regular rhythm; no murmur Abdomen- normal bowel sounds, soft, nontender Extremities- no calf tenderness Neuro- alert, oriented x 3; PERRL, EOMI; no facial palsy; no dysarthria Skin- warm & dry Results & Data Results & Data ([facility]) Vital Signs (Past 12 Hours) Vital Signs Temp Pulse Resp BP Pulse Ox 01/18/22 07:43 36.6 C 58 L 16 131/76 100
--- NOTE | 2022-01-28 12:38 | Discharge Summary ---
Date of Service January 28, 2022 Admission HPI Per Admitting Provider This is an 81-year-old male with presents with chronic back and leg pain after failing course of nonoperative care is here for surgical invention. Principal Diagnosis Lumbar spinal stenosis with neurogenic claudication Discharge Data Allergies Allergy/AdvReac Type Severity Reaction Status Date / Time Antiseptic solution Allergy Intermediate Severe Uncoded 01/15/22 09:11 skin reaction/sensitivity with prior preop cleanser Consultations 01/15/22 14:49 Consult Hospitalist Routine Procedures Performed Operation Date: 01/15/22 10:05 Actual Procedures p L4-S1 Decompression and Fusion - Rahat Fernandez DO Ordered Studies 01/15/22 10:05 FL lumbar spine 2-3V Routine Hospital Course (1) Neurogenic claudication due to lumbar spinal stenosis: Patient went lumbar decompression fusion tolerated this well was taken to orthopedic for possibly. Postop day 1 he was up and ambulating progressed to postop day #2 and 3 LIZA drain decreased probably. Socially discharged to rehab. Discharge orders instructions from the chart for further view. Total Time Total Time Spent Total Time Spent (In Minutes): 20 minutes Discharge Plan Discharge Items Patient Disposition: Transfer Inpatient Rehab Fac Reason For Visit: Spinal Stenosis, Lumbar Region with Neurogenic Discharge Diagnosis: Lumbar spinal stenosis with neurogenic claudication Activity: As commented below Non-emergency contact: Primary Care Provider Call non-emergency contact if: you have any medication questions Follow-up/Referrals: Polina Hoang [Primary Care Provider] - Diet: Regular Addtl Attending Provider Instructions: ACTIVITY RECOMMENDATIONS: SELF CARE INSTRUCTIONS AFTER THORACIC/LUMBAR FUSIONS 1. You may walk to your tolerance. It is good exercise for your legs and back. Expect some back and intermittent leg aches and pains. 2. You may perform "counter-top" level activities (make a sandwich, ike with a project, etc.). 3. No bending or lifting of more than 10 pounds or back twisting of any nature (roll like a log when turning in bed). 4. You may ride in a car for 20-30 minutes at a time. No driving until after your first visit with your doctor. 5. Frequent changes of position and restricting sitting to 30 minutes at a time will help limit the amount of back spasms and stiffness you may experience. 6. You may discontinue the use of ambulatory aids (cane, crutches, etc.) once your strength and confidence allow. 7. You may outside installation machinist the shower and let water strike your incision when you arrive home at least once daily. Do not take a tub bath, sit in a hot tub or go into a swimming pool until after your first recheck in the office. SPECIAL CARE INSTRUCTIONS: VERY IMPORTANT TO READ AND REVIEW A. Your surgical incision has been closed with a cosmetic suture under the skin that will dissolve in about 6 weeks. In 14 days, you can use a pair of clean scissors and cut the suture that is left outside of the skin at the ends of your incision. 1. The small skin tapes can be removed 7 days after surgery if they have not fallen off by that point. 2. You may keep the wound open to air as much as possible to promote healing after post-op day number 5 unless told otherwise by your doctor. 3. If you think the wound looks like it is becoming infected (redness or worsening drainage) and/or you are experiencing fever, chill or worsening back pain and muscle spasms, contact the office so that we may evaluate you as soon as possible. B. Complications are uncommon, but please contact us if you have any signs or symptoms of: 1. wound infection (fever higher than 102.5 degrees F, redness, separation of wound, drainage, or increasing pain from the incision) 2. blood clots in legs (pain, swelling, redness and warmth in legs) 3. urinary tract infection (fever higher than 102.5 degrees F, burning upon urination or increased frequency of urination) 4. nerve problems (inability to walk on your toes or heels, numbness, loss of bowel or bladder control) 5. any other symptoms that concern you C. Please call the office at if you have any concerns or questions about your operation or recovery. D. No smoking! Smoking drastically decreases the chance of a solid fusion. E. Do not take any anti-inflammatory medications (Indocin, Advil, Motrin, Aspirin, Naprosyn, etc.) as these may inhibit the chance of a solid fusion. Tylenol is okay to take for pain. MANAGING PAIN AFTER SPINAL SURGERY 1. Narcotic medication is intended for short-term use and will be provided for surgical pain. Surgical pain usually lasts for a period of 4-6 weeks. Narcotic medication includes Percocet, Vicodin, Darvocet, Tylenol #3 or Lortab. 2. Longer-term pain is more appropriately treated with non-narcotic medication such as Tylenol ES. 3. Muscle spasm is not appropriately treated with narcotics. Muscle relaxers such as Soma, Flexeril or Skelaxin can be used along with Tylenol ES. 4. Remember that we all live with some "aches and pains". This is not unusual or uncommon after an injury or as we get older. a. Back pain is expected and may include muscle spasms for 4 to 6 weeks after surgery. The pain should gradually improve. If the pain worsens for no apparent reason, please contact the office. b. Intermittent leg pain may also be experienced and should not be concerned about unless it worsens for no apparent reason. If so, please contact the office. 5. We will provide appropriate medication within the normal guidelines of their prescribed use. We will also be very cautious and aware of potential abuse and extended duration of patients' medication needs. a. Pain medications are for your comfort and to assist with sleep and rest so that the tissue can heal. They are not provided in order to return to normal activity and should not be used through the day. To do so or worsening pain at night can result from ongoing tissue damage and development of tolerance to the prescribed medicine. 6. Please allow 2-3 days to process refills. Prescriptions will not be mailed but must be picked up at the office. FOLLOW UP VISIT: Keep your scheduled follow-up appointment. Any questions, please call the office at . Pending Studies at Discharge: No Stand-Alone Forms: My IQcard, Smoking Cessation Skilled Items Patient informed of condition?: Yes DNR: No Discharge Level of Care: Acute rehab Communicable Disease: No Discharge Prognosis: Improving Lines: None Urinary Catheter: No Medications and DC Order Prescriptions: New tramadol 50 mg tablet 50 mg PO Q6H PRN (Reason: pain, moderate) Qty: 30 RF: 0 oxycodone 5 mg tablet 5 mg PO Q6H PRN (Reason: pain, severe) Qty: 30 RF: 0 Continued amantadine HCl 100 mg Tablet 100 mg PO QAM RF: 0 donepezil 10 mg Tablet 10 mg PO HS RF: 0 simvastatin 10 mg Tablet 10 mg PO PM RF: 0 tamsulosin 0.4 mg Capsule 0.4 mg PO QPM RF: 0 mirtazapine [Remeron] 15 mg Tablet 15 mg PO HS RF: 0 carbidopa-levodopa 25-100 mg Tablet 1 tab PO BID RF: 0 sertraline 50 mg Tablet 50 mg PO HS RF: 0 cholecalciferol (vitamin D3) [Vitamin D3] 50 mcg (2,000 unit) Capsule 50 mcg PO QAM RF: 0 Excedrin Extra Strength 250-250-65 mg Tablet 1 tab PO Q6H PRN (Reason: Pain) RF: 0 docusate sodium 100 mg Capsule 100 mg PO BID PRN (Reason: Constipation) RF: 0 Discharge Orders: Discharge Order (Routine); Ordered 01/18/22 Ordered By: Rahat Chambers/Other Patient Handouts: DVT Post Op Prevention Admission Data Admit Date/Time: 01/15/22 12:37 Attending Provider: Rahat Fernandez Admit Provider: Rahat Fernandez Primary Care Provider: Polina Hoang Other Providers: Katerina Richter ; Yousuf Ruvalcaba Other Interventions: Discharge Summary Assessment (RN) Last Done: 01/18/22 12:49
== END 2022-01-18 14:15 | DRG 460 ==
LOC: ASU 08:31 → PACUINP 12:37 → 3E 17:17

== ENCOUNTER 2024-09-25 08:41 | Observation (INO) ==
--- NOTE | 2024-09-25 08:50 | Emergency Department Note ---
Impression & Plan Parkinson disease, Stroke-like symptoms, Loss of balance ED Provider Note NAME: MARIELLE BOWIE AGE: 83 SEX: M : 1940 ARRIVES VIA: Ambulance INFORMANT: Patient ED PROVIDER(S): Isac Vasquez MD CHIEF COMPLAINT: Weakness, left-sided facial droop, Parkinson's PLAN: Disposition: Admit MEDICAL DECISION MAKING: The patient is a pleasant 83-year-old gentleman with a past medical history of Parkinson disease, s/p DBS, BPH who presents to the emergency department via EMS and accompanied by his for evaluation of strokelike symptoms including left facial weakness and lower extremity weakness and unsteadiness. The patient's reports that she first noticed some difference in his normal Parkinson's symptoms last night around 9 PM when you are watching TV. She admits that the room was dark and may have not noticed his left facial weakness. She reports he was attempting to put on his glasses at one point and could not figure out how to do it. He also has had some increased stuttering of his speech from his baseline. She thought he may have simply been tired and so he went to sleep. However this morning he continued to exhibit weakness. Patient is not on anticoagulation. They deny any new medications. Of note, the patient did arrive to emergency department during time of high volume, acuity and prolonged emergency department waiting times. On evaluation patient no distress, afebrile with stable vital signs including normal blood pressure. He appears clinically dry. He exhibits masked facies with cogwheel rigidity consistent with the patient's Parkinson's. There does appear to be blunting of the left nasolabial fold at rest. However when prompted with redirection patient does appear to be able to hopefully raise the left lower side of his face. However the patient's felt that his resting asymmetry was new. He exhibits generalized weakness in all extremities without focal weakness. Given the patient's last known well was before 2100 last night and symptoms that do not appear to be substantially different from his baseline Parkinson's no indication for stroke alert at this time. However his stroke assessment was expedited with CT imaging. EKG without overt acute ischemia with baseline artifact present secondary to DBS. CXR negative for acute cardiopulmonary process per my personal preliminary review/interpretation. WBC within normal limits. Hemoglobin and platelets within normal limits. Chemistry without metabolic acidosis. Electrolytes and LFTs unremarkable. High-sensitivity troponin 16, within normal limits. UA with WBCs however no bacteria and negative nitrites. Respiratory BioFire was negative. CT of the head and CT of the head and neck performed and were negative for ICH, ischemia or severe narrowing occlusion of large vessels. Patient was treated with IV fluid hydration. Suspect symptoms likely related to the patient's Parkinson's though stroke/TIA is not completely excluded. Given the patient's symptoms which are somewhat different from the patient's baseline patient referred to hospital service for further evaluation. Case was discussed Andre Fleming PAC, with Dr. Chelo Powell hospitalist who will evaluate the patient for admission. Further management per admitting team. Triage Nursing notes reviewed and agree them. Prior/external medical records reviewed Vital Signs: reviewed Differential diagnosis: Infection, dehydration, metabolic abnormality, hypo/hyperglycemia, electrolyte disturbance, anemia, hypoxia, cardiac sources, intracerebral event, toxicologic, neurologic, as well as other pathologies. ER treatment provided: See below. Diagnostics interpreted by me: Cardiac Monitoring: An order for continuous cardiac monitoring was placed and demonstrated normal sinus rhythm, 62 bpm, no ectopy. Laboratory studies: See below Imaging studies: See below Consultation(s): Andre Fleming PAC, with Dr. Chelo Powell hospitalist. HPI: The patient is a pleasant 83-year-old gentleman with a past medical history of Parkinson disease, s/p DBS, BPH who presents to the emergency department via EMS and accompanied by his for evaluation of strokelike symptoms including left facial weakness and lower extremity weakness and unsteadiness. The patient's reports that she first noticed some difference in his normal Parkinson's symptoms last night around 9 PM when you are watching TV. She admits that the room was dark and may have not noticed his left facial weakness. She reports he was attempting to put on his glasses at one point and could not figure out how to do it. He also has had some increased stuttering of his speech from his baseline. She thought he may have simply been tired and so he went to sleep. However this morning he continued to exhibit weakness. Patient is not on anticoagulation. They deny any new medications. ROS: See above HPI for pertinent positives & negatives. A total of 10 systems reviewed and were otherwise negative. VITALS:See Below PHYSICAL EXAMINATION: GENERAL: Awake, alert, fatigued-appearing, in no distress HENT: Normocephalic, atraumatic. Oropharynx with dry mucous membranes and otherwise unremarkable. EYES: Normal conjunctiva. Sclera non-icteric. EOMI. No nystamgus. PEARRL. NECK: Supple. No nuchal rigidity. FROM. No JVD. RESPIRATORY: Clear to auscultation. CARDIAC: Regular rate, normal rhythm. Extremities warm and well perfused. Pulses equal. ABDOMEN: Soft, non-distended. No tenderness to palpation. No rebound or guarding. No masses. MUSCULOSKELETAL: Chest examination reveals no tenderness. The back is symmetrical on inspection without obvious abnormality. There is no CVA tenderness to palpation. No joint edema. LOWER EXTREMITIES: Calves are equal size bilaterally and non-tender. No edema. No discoloration. NEURO: Masked facies and cogwheel rigidity. Asymmetry of the left lower face at rest however symmetric with prompting and redirection. No leakage of air with pursed lip breath. Generalized weakness of all extremities without focal extremity weakness. SKIN: No rash or jaundice noted. Isac Vasquez MD Past Med/Surg History Problem List (Updated 09/25/24 @ 22:49 by Isac Vasquez MD) Stroke-like symptoms (Acute) Urinary urgency Parkinson disease (Acute) Neurogenic claudication due to lumbar spinal stenosis Encounter for pre-operative examination Trochanteric bursitis of left hip Hip flexor tendinitis Loss of balance (Acute) Hip contracture Medical History Enlarged prostate Cancer BCC Anxiety Migraine Hx Hyperlipidemia Parkinson's disease Follows with Dr. Margo Macedo ([facility], [place], operated by [facility]) Deep brain stimulator ([employer], Will bring remote AM DOS) [employer] rep per pt > Tiffani Jewell, P: [phone] Lumbar stenosis Cervical stenosis of spinal canal Surgical History Elective surgery PLACEMENT DEEP BRAIN STIMULATOR (2016) REPLACEMENT BATTERIES (2020) History of colonoscopy History of cervical spinal surgery C4 corpectomy, ACDF C5-7 (02/05/16): MAC#3, ETT 8 at [facility]. Mild, asymptomatic post-op tachycardia + also sore throat. Discharged on POD 3 without further issue. Family History Father Family history of diabetes mellitus Uncle Family history of diabetes mellitus Social History Smoking Status: Never smoker Second Hand Exposure: Yes; Do You Dip or Chew Tobacco: No; Hx Alcohol Use: No Hx Substance Use: No Preferred Language: Lithuanian Communication Ability: Effective Dietetic Tech Required: No Beliefs That Will Affect Care: None marital status: Current Living Situation: Spouse Current Living Situation Comment: [facility] current occupational status: retired current occupation: RETIRED PHARMACIST Feels Safe at Home: Yes Assistive Devices: Walker Allergies Allergies Allergy/AdvReac Type Severity Reaction Status Date / Time Antiseptic solution Allergy Intermediate Severe Uncoded 07/04/23 10:21 skin reaction/sensitivity with prior preop cleanser Home Meds Home Medications Medication Instructions Recorded Confirmed amantadine HCl 100 mg tablet 100 mg PO QAM 12/31/21 09/25/24 dlegzmz-obftqhybbihgb-[id number] 250 1 tab PO Q6H PRN Pain 12/31/21 09/25/24 mg-250 mg-65 mg tablet (Excedrin Extra Strength) carbidopa 25 mg-levodopa 100 mg 1 tab PO BID 12/31/21 09/25/24 tablet cholecalciferol (vitamin D3) 50 50 mcg PO QAM 12/31/21 09/25/24 mcg (2,000 unit) capsule (Vitamin D3) docusate sodium 100 mg capsule 100 mg PO BID PRN Constipation 12/31/21 09/25/24 donepezil 10 mg tablet 15 mg PO HS 12/31/21 09/25/24 mirtazapine 15 mg tablet (Remeron) 15 mg PO HS 12/31/21 09/25/24 simvastatin 10 mg tablet 0 mg PO PM 12/31/21 09/25/24 tamsulosin 0.4 mg capsule 0.4 mg PO QPM 12/31/21 09/25/24 ferrous sulfate 27 mg iron tablet 27 mg PO DAILY 03/30/23 09/25/24 mecobalamin (vitamin B12) 5,000 5,000 mcg PO DAILY 03/30/23 09/25/24 mcg disintegrating tablet sertraline 50 mg tablet 50 mg PO DAILY 03/30/23 09/25/24 donepezil 5 mg tablet 15 mg PO HS 09/25/24 09/25/24 Previous Rx's Medication Instructions Recorded solifenacin 10 mg tablet (Vesicare) 10 mg PO DAILY #30 tabs 04/11/24 Results & Data (ED) Vital Signs Vital Signs - 24 hr 09/25/24 08:50 09/25/24 08:52 09/25/24 09:00 Temperature 36.7 C Temperature Source Oral Pulse Rate 64 64 Pulse Rate from SpO2 Sensor Respiratory Rate 16 Respiratory Effort / Characteristics Non-Labored Spontaneous Respiratory Depth Normal Respiratory Pattern Regular Blood Pressure 114/86 121/75 Blood Pressure Mean 95 102 Blood Pressure Position Lying Pulse Oximetry 98 Oxygen Delivery Method Room Air Sepsis Recent Fever Within 48 Hours No Sepsis New/Unexplained Change in Mental Status No Sepsis Action Taken by Nursing No Action Required 09/25/24 09:03 09/25/24 09:54 09/25/24 10:00 Temperature Temperature Source Pulse Rate 70 74 Pulse Rate from SpO2 Sensor 70 76 Respiratory Rate Respiratory Effort / Characteristics Respiratory Depth Respiratory Pattern Blood Pressure 100/77 Blood Pressure Mean 84 Blood Pressure Position Pulse Oximetry 98 99 Oxygen Delivery Method Sepsis Recent Fever Within 48 Hours Sepsis New/Unexplained Change in Mental Status Sepsis Action Taken by Nursing 09/25/24 10:03 09/25/24 10:30 09/25/24 10:30 Temperature Temperature Source Pulse Rate 64 65 Pulse Rate from SpO2 Sensor 64 62 Respiratory Rate 22 Respiratory Effort / Characteristics Respiratory Depth Respiratory Pattern Blood Pressure 118/68 Blood Pressure Mean 88 Blood Pressure Position Pulse Oximetry 99 97 Oxygen Delivery Method Sepsis Recent Fever Within 48 Hours Sepsis New/Unexplained Change in Mental Status Sepsis Action Taken by Nursing 09/25/24 12:55 Temperature Temperature Source Pulse Rate 62 Pulse Rate from SpO2 Sensor Respiratory Rate Respiratory Effort / Characteristics Respiratory Depth Respiratory Pattern Blood Pressure Blood Pressure Mean Blood Pressure Position Pulse Oximetry Oxygen Delivery Method Sepsis Recent Fever Within 48 Hours Sepsis New/Unexplained Change in Mental Status Sepsis Action Taken by Nursing Laboratory Data Attestation: I reviewed the patient's lab results. 09/25/24 09:00 09/25/24 09:00 Lab Results 09/25/24 09/25/24 09/25/24 Range/Units 09:00 09:13 09:23 WBC 4.80 (4.8-10.8) K/ul RBC 4.38 L (4.70-6.10) M/uL Hgb 14.0 (14.0-18.0) g/dl POC Hgb 13.6 L (14.0-18.0) g/dl Hct 39.3 L (42.0-52.0) % POC Hct 40 L (42-52) % MCV 89.7 (80.0-100.0) fL MCH 32.0 (25.0-34.0) pg MCHC 35.6 (32.0-36.0) g/dL RDW Std Deviation 39.9 (36.4-46.3) fL RDW Coeff of [place] 12.1 (11.5-14.5) % Plt Count 164 (130-400) K/uL MPV 9.1 L (9.4-12.4) fL Immature Gran % (Auto) 0.2 % Neut % (Auto) 71.7 % Lymph % (Auto) 14.4 % Falls % (Auto) 12.7 % Eos % (Auto) 0.6 % Baso % (Auto) 0.4 % Neut # (Auto) 3.44 (1.40-6.50) K/uL Lymph # (Auto) 0.69 L (1.20-3.40) K/uL Falls # (Auto) 0.61 H (0.11-0.59) K/uL Eos # (Auto) 0.03 (0.00-0.50) K/uL Baso # (Auto) 0.02 (0.00-0.20) K/uL Immature Gran # (Auto) 0.01 (0.01-0.20) K/uL PT 11.1 (9.0-12.0) Seconds INR 1.0 (0.9-1.1) APTT 27 (21-31) Seconds PTT Ratio 1.0 POC Sodium 139 (135-144) mmol/L Sodium 138 (136-145) mmol/L POC Potassium 4.0 (3.3-5.0) mmol/L Potassium 4.0 (3.5-5.1) mmol/L POC Chloride 105 (101-112) mmol/L Chloride 106 (98-107) mmol/L Carbon Dioxide 27 (21-32) mmol/L POC Total CO2 23 L (24-31) mmol/L Anion Gap 5 (3-11) POC Anion Gap 16.0 (16-25) mmol/L POC BUN 19 H (7-18) mg/dl BUN 20 (6-23) mg/dl Creatinine 1.18 (0.6-1.4) mg/dl POC Creatinine 1.3 (0.6-1.3) mg/dl Est Cr Clr Drug Dosing 42.0 ml/min eGFR 61.61 BUN/Creatinine Ratio 16.9 (10-20) Glucose 98 (70-99(Fasting)) mg/dl POC Glucose (other) 97 (70-99) mg/dl Calcium 8.8 (8.6-10.3) mg/dl POC Ioniz Calcium Tamika 1.14 (1.12-1.32) mmol/l Magnesium 2.1 (1.7-2.4) mg/dl Total Bilirubin 0.6 (0.2-1.0) mg/dl AST 14 (13-39) U/L ALT 12 (7-52) U/L Alkaline Phosphatase 103 (34-104) U/L Troponin I High Sens 16.0 (0-20) pg/ml Total Protein 6.4 (6.0-8.3) gm/dl Albumin 4.0 (3.4-5.0) gm/dl Globulin 2.4 L (2.5-4.0) gm/dl Albumin/Globulin Ratio 1.7 (0.9-2) Urine Color Urine Appearance (Clear) Urine pH (4.5-7.5) Ur Specific [place] (1.000-1.030) Urine Protein (Negative) Urine Glucose (UA) (Negative) Urine Ketones (Negative) Urine Blood (Negative) Urine Nitrite (Negative) Urine Bilirubin (Negative) Urine Urobilinogen (Negative) Ur Leukocyte Esterase (Negative) Urine WBC (Auto) (0-5) /hpf Urine RBC (Auto) (0-2) /hpf U Hyaline Cast (Auto) (0-2) /lpf U Epithel Cells (Auto) (0-2) /hpf Urine Bacteria (Auto) (None Seen) Adenovirus (PCR) Not Detected (NotDetected) B. pertussis DNA (PCR) Not Detected (NotDetected) B.parapertussis DNA PCR Not Detected (NotDetected) C. pneumoniae DNA (PCR) Not Detected (NotDetected) Coronavirus OC43 (PCR) Not Detected (NotDetected) Coronavirus HKU1 (PCR) Not Detected (NotDetected) Coronavirus 229E (PCR) Not Detected (NotDetected) SARS-CoV-2 (PCR) Not Detected (NotDetected) Coronavirus NL63 (PCR) Not Detected (NotDetected) Human Metapneumovir PCR Not Detected (NotDetected) Influenza Type A (PCR) Not Detected (NotDetected) Influenza Type B (PCR) Not Detected (NotDetected) M. pneumoniae (PCR) Not Detected (NotDetected) Parainfluenza 1 (PCR) Not Detected (NotDetected) Parainfluenza 2 (PCR) Not Detected (NotDetected) Parainfluenza 3 (PCR) Not Detected (NotDetected) Parainfluenza 4 (PCR) Not Detected (NotDetected) RSV (PCR) Not Detected (NotDetected) Entero/Rhino (PCR) Not Detected (NotDetected) 09/25/24 Range/Units 11:52 WBC (4.8-10.8) K/ul RBC (4.70-6.10) M/uL Hgb (14.0-18.0) g/dl POC Hgb (14.0-18.0) g/dl Hct (42.0-52.0) % POC Hct (42-52) % MCV (80.0-100.0) fL MCH (25.0-34.0) pg MCHC (32.0-36.0) g/dL RDW Std Deviation (36.4-46.3) fL RDW Coeff of [place] (11.5-14.5) % Plt Count (130-400) K/uL MPV (9.4-12.4) fL Immature Gran % (Auto) % Neut % (Auto) % Lymph % (Auto) % Falls % (Auto) % Eos % (Auto) % Baso % (Auto) % Neut # (Auto) (1.40-6.50) K/uL Lymph # (Auto) (1.20-3.40) K/uL Falls # (Auto) (0.11-0.59) K/uL Eos # (Auto) (0.00-0.50) K/uL Baso # (Auto) (0.00-0.20) K/uL Immature Gran # (Auto) (0.01-0.20) K/uL PT (9.0-12.0) Seconds INR (0.9-1.1) APTT (21-31) Seconds PTT Ratio POC Sodium (135-144) mmol/L Sodium (136-145) mmol/L POC Potassium (3.3-5.0) mmol/L Potassium (3.5-5.1) mmol/L POC Chloride (101-112) mmol/L Chloride (98-107) mmol/L Carbon Dioxide (21-32) mmol/L POC Total CO2 (24-31) mmol/L Anion Gap (3-11) POC Anion Gap (16-25) mmol/L POC BUN (7-18) mg/dl BUN (6-23) mg/dl Creatinine (0.6-1.4) mg/dl POC Creatinine (0.6-1.3) mg/dl Est Cr Clr Drug Dosing ml/min eGFR BUN/Creatinine Ratio (10-20) Glucose (70-99(Fasting)) mg/dl POC Glucose (other) (70-99) mg/dl Calcium (8.6-10.3) mg/dl POC Ioniz Calcium Tamika (1.12-1.32) mmol/l Magnesium (1.7-2.4) mg/dl Total Bilirubin (0.2-1.0) mg/dl AST (13-39) U/L ALT (7-52) U/L Alkaline Phosphatase (34-104) U/L Troponin I High Sens (0-20) pg/ml Total Protein (6.0-8.3) gm/dl Albumin (3.4-5.0) gm/dl Globulin (2.5-4.0) gm/dl Albumin/Globulin Ratio (0.9-2) Urine Color Yellow Urine Appearance Clear (Clear) Urine pH 5.5 (4.5-7.5) Ur Specific [place] 1.041 H (1.000-1.030) Urine Protein Negative (Negative) Urine Glucose (UA) Negative (Negative) Urine Ketones Negative (Negative) Urine Blood Negative (Negative) Urine Nitrite Negative (Negative) Urine Bilirubin Negative (Negative) Urine Urobilinogen Negative (Negative) Ur Leukocyte Esterase 2+ H (Negative) Urine WBC (Auto) 6-10 H (0-5) /hpf Urine RBC (Auto) 0-2 (0-2) /hpf U Hyaline Cast (Auto) 0-2 (0-2) /lpf U Epithel Cells (Auto) 0-2 (0-2) /hpf Urine Bacteria (Auto) None Seen (None Seen) Adenovirus (PCR) (NotDetected) B. pertussis DNA (PCR) (NotDetected) B.parapertussis DNA PCR (NotDetected) C. pneumoniae DNA (PCR) (NotDetected) Coronavirus OC43 (PCR) (NotDetected) Coronavirus HKU1 (PCR) (NotDetected) Coronavirus 229E (PCR) (NotDetected) SARS-CoV-2 (PCR) (NotDetected) Coronavirus NL63 (PCR) (NotDetected) Human Metapneumovir PCR (NotDetected) Influenza Type A (PCR) (NotDetected) Influenza Type B (PCR) (NotDetected) M. pneumoniae (PCR) (NotDetected) Parainfluenza 1 (PCR) (NotDetected) Parainfluenza 2 (PCR) (NotDetected) Parainfluenza 3 (PCR) (NotDetected) Parainfluenza 4 (PCR) (NotDetected) RSV (PCR) (NotDetected) Entero/Rhino (PCR) (NotDetected) Administered Medications Carbidopa/Levodopa (Carbidopa/Levodopa 25/100mg Tab) 1 tab PO BID KAL Stop: 10/25/24 19:30 Last Admin: 09/25/24 22:04 Dose: Not Given Documented By: Admin: 09/25/24 20:44 Dose: 1 tab Documented By: DENNISE Donepezil HCl (Donepezil Hcl 5 Mg Tab) 15 mg PO KAL Stop: 10/25/24 20:59 Last Admin: 09/25/24 20:45 Dose: 15 mg Documented By: DENNISE Mirtazapine (Mirtazapine Tab 15 Mg Tab) 15 mg PO KAL Stop: 10/25/24 20:59 Last Admin: 09/25/24 20:50 Dose: 15 mg Documented By: DENNISE Oxybutynin Chloride (Oxybutynin Chloride Xl 5 Mg Tabcr) 10 mg PO HS KAL Stop: 10/25/24 20:59 Last Admin: 09/25/24 22:06 Dose: 10 mg Documented By: DENNISE Sertraline HCl (Sertraline Hcl 50 Mg Tablet) 50 mg PO DAILY KAL Stop: 10/25/24 19:30 Last Admin: 09/25/24 21:52 Dose: Not Given Documented By: DENNISE Tamsulosin HCl (Tamsulosin Hcl 0.4 Mg Cap) 0.4 mg PO QPM KAL Stop: 10/25/24 20:59 Last Admin: 09/25/24 20:50 Dose: 0.4 mg Documented By: DENNISE Discontinued Medications Aspirin (Aspirin Chew 324 Mg) 324 mg PO NOW STA Stop: 09/25/24 12:35 Last Admin: 09/25/24 13:08 Dose: 324 mg Documented By: ROSAS Atorvastatin Calcium (Atorvastatin 40 Mg Tab) 80 mg PO ONCE ONE Stop: 09/25/24 19:32 Last Admin: 09/25/24 20:42 Dose: 80 mg Documented By: DENNISE Clopidogrel Bisulfate (Clopidogrel Bisulfate 75 Mg Tab) 75 mg PO NOW ONE Stop: 09/25/24 19:43 Last Admin: 09/25/24 20:45 Dose: 75 mg Documented By: DENNISE Sodium Chloride (Nss) 1,000 mls @ 999 mls/hr IV .Q1H1M ONE Stop: 09/25/24 10:19 Last Infusion: 09/25/24 12:40 Dose: Infused Documented By: Admin: 09/25/24 09:25 Dose: 999 mls/hr Documented By: NANETTE Ioversol (Optiray 320 125ml) 112 ml IV ONCE ONE Stop: 09/25/24 09:36 Last Admin: 09/25/24 09:35 Dose: 112 ml Documented By: CHANCE Imaging Data Radiologist's Impression: Chest X-Ray 09/25/24 09:18 XR chest 1V portable CLINICAL HISTORY: neuro deficit, acute stroke suspected COMPARISON STUDY: 01/01/2022 FINDINGS: Bilateral neuro stimulators with leads off the field of view superiorly again seen. Heart size and pulmonary vasculature are normal. No effusion, consolidation, or pneumothorax. IMPRESSION: No acute findings. ACT 112: Negative or not required by law. Electronically signed by: Vin Saldana M.D. 09/25/2024 9:[address] 09/25/24 09:18 CT head/brain wo con CLINICAL HISTORY: 83 years-old Male with parkinsons, dbs, left facial weakness. Acute weakness with stroke like symptoms TECHNIQUE: Multiple axial CT images of the head were obtained without contrast. A dose lowering technique was utilized adhering to the principles of ALARA. COMPARISON: CTA head and neck of same day, head CT 03/28/2023 FINDINGS: Bilateral electrodes/stimulator leads are in place from a right frontal approach. These terminate in the thalami. There is age-related involutional change noting mild subcortical and periventricular microangiopathic disease. There is no hemorrhage, mass effect, or evidence of acute territorial ischemia by CT criteria. Schwartz-white matter differentiation is preserved. No extra-axial fluid collection is seen. The calvarium is intact. Mastoid air cells are clear. Mild mucosal thickening of the ethmoid air cells. Soft tissues and orbits are unremarkable with prior bilateral lens repair. IMPRESSION: 1. No acute intracranial abnormality. 2. Chronic appearance of the brain. ACT 112: Negative or not required by law. The above report was generated using voice recognition software. It may contain grammatical, syntax or spelling errors. Electronically signed by: Prashanth Elliott M.D. 09/25/2024 10:10 AM Head CTA 09/25/24 09:18 CT angio head w con CLINICAL HISTORY: parkinsons, dbs, left facial weakness. COMPARISON STUDY: None TECHNIQUE: Unenhanced axial CT scan of the brain is performed. Subsequently, following the IV administration of 112 cc of Optiray, CT angiogram of the brain was performed from the skull base to the vertex. Images are reviewed in the axial, sagittal, and coronal planes. 3-D MIPS images are created and assessed. IV contrast was administered without complication. All measurements were obtained according to NASCET criteria. A dose lowering technique was utilized adhering to the principles of ALARA. CT DOSE: 1164.48 mGy.cm FINDINGS: Bilateral deep brain stimulators are present. The left vertebral artery is dominant and the right vertebral artery predominantly terminates in pica, anatomic variant. Intracranial internal carotid arteries are widely patent. Basilar artery is widely patent. The anterior, middle, and posterior cerebral arteries are patent bilaterally. No intracranial aneurysm seen. The left transverse sinus is not significantly opacified. This could represent congenital atresia or chronic stenosis. Otherwise the cerebral venous sinuses opacify normally. IMPRESSION: No significant arterial narrowing or occlusion seen in the brain. ACT 112: Negative or not required by law. The above report was generated using voice recognition software. It may contain grammatical, syntax or spelling errors. Electronically signed by: Vin Saldana M.D. 09/25/2024 10:04 AM Neck CTA 09/25/24 09:18 CT angio neck with con CLINICAL HISTORY: 83 years-old Male with parkinsons, dbs, left facial weakness. Acute strokelike symptoms COMPARISON STUDY: CTA head of same day TECHNIQUE: Following the IV administration of 112 mL of Optiray, CT angiogram of the neck was performed from the aortic arch to the skull base. Images are reviewed in the axial, sagittal, and coronal planes. 3-D MIPS images are created and assessed. IV contrast was administered without complication. All measurements were calculated based on NASCET criteria. A dose lowering technique was utilized adhering to the principles of ALARA. FINDINGS: Three-vessel morphology of the thoracic arch. There is patency of the innominate and imaged subclavian arteries. The common carotid arteries are patent. Moderate atherosclerosis of the carotid bulbs without significant stenosis. The internal carotid arteries are patent. Dominant left vertebral artery. Vertebral arteries are patent. No aneurysm, dissection, high-grade stenosis or arterial occlusion. Cervical spinal fusion hardware. Battery packs project over the chest with neurostimulator leads extending into the brain. Lung apices are clear. Numerous subcentimeter thyroid nodules. No pathologically enlarged lymph nodes. IMPRESSION:Unremarkable CTA of the neck. ACT 112: Negative or not required by law. The above report was generated using voice recognition software. It may contain grammatical, syntax or spelling errors. Electronically signed by: Prashanth Elliott M.D. 09/25/2024 10:16 AM Discharge Plan Visit Data Chief Complaint: TIA Symptoms Stated Complaint: NEURO ASSESSMENT, FAMILY WANTS EVAL. ED Provider: Isac Vasquez Discharge Problem: Parkinson disease, Stroke-like symptoms, Loss of balance Patient Disposition: Admitted As Inpatient Discharge Instructions Interventions: ED Discharge Assessment Last Done: 09/25/24 19:32 Discharge Problem: Parkinson disease Qualifiers: Dyskinesia presence: with dyskinesia Fluctuating manifestations: with fluctuating manifestations Qualified Code(s): G20.B2 - Parkinson's disease with dyskinesia, with fluctuations
[2024-09-25 09:25] LABS: iSTAT Creatinine 1.3 mg/dl (0.6-1.3); iSTAT Hemoglobin 13.6 g/dl (14.0-18.0); iSTAT Ionized Calcium 1.14 mmol/l (1.12-1.32)
[2024-09-25] MEDS: SODIUM CHLORIDE 0.9% 1,000 ML IV ONE (09:25)
[2024-09-25] MEDS: OPTIRAY 320 125ml IV ONE (09:35)
--- NOTE | 2024-09-25 09:40 | XRay Report ---
XR chest 1V portable CLINICAL HISTORY: neuro deficit, acute stroke suspected COMPARISON STUDY: 01/01/2022 FINDINGS: Bilateral neuro stimulators with leads off the field of view superiorly again seen. Heart s ize and pulmonary vasculature are normal. No effusion, consolidation, or pneumothorax. IMPRESSION: No acute findings. ACT 112: Negative or not required by law. Electronically signed by: Vin Saldana M.D. 09/25/2024 9:38 AM
[2024-09-25 09:59] LABS: Basophils # (auto) 0.02 K/uL (0.00-0.20); Basophils % (auto) 0.4 %; Eosinophils # (auto) 0.03 K/uL (0.00-0.50); Eosinophils % (auto) 0.6 %; Hematocrit (blood only) 39.3 % (42.0-52.0); Immature Granulocytes # (auto) 0.01 K/uL (0.01-0.20); Immature Granulocytes % (auto) 0.2 %; Lymphocytes # (auto) 0.69 K/uL (1.20-3.40); Lymphocytes % (auto) 14.4 %; Mean Corpuscular Hgb Conc 35.6 g/dL (32.0-36.0); Mean Corpuscular Volume 89.7 fL (80.0-100.0); Mean Platelet Volume 9.1 fL (9.4-12.4); Monocytes # (auto) 0.61 K/uL (0.11-0.59); Monocytes % (auto) 12.7 %; Neutrophils # (auto) 3.44 K/uL (1.40-6.50); Neutrophils % (auto) 71.7 %; Platelet Count 164 K/uL (130-400); RDW Coefficient of Variation 12.1 % (11.5-14.5); RDW Standard Deviation 39.9 fL (36.4-46.3); Red Blood Count 4.38 M/uL (4.70-6.10)
[2024-09-25 10:01] LABS: Albumin Globulin Ratio 1.7 (0.9-2); BUN Creatinine Ratio 16.9 (10-20); Bilirubin,Total 0.6 mg/dl (0.2-1.0); Calcium 8.8 mg/dl (8.6-10.3); Globulin 2.4 gm/dl (2.5-4.0); Magnesium 2.1 mg/dl (1.7-2.4); Total Protein 6.4 gm/dl (6.0-8.3)
--- NOTE | 2024-09-25 10:06 | CT Scan Report ---
CT angio head w con CLINICAL HISTORY: parkinsons, dbs, left facial weakness. COMPARISON STUDY: None TECHNIQUE: Unenhanced axial CT scan of the brain is performed. Subsequently, following the IV adminis tration of 112 cc of Optiray, CT angiogram of the brain was performed from the skull base to the vert ex. Images are reviewed in the axial, sagittal, and coronal planes. 3-D MIPS images are created and a ssessed. IV contrast was administered without complication. All measurements were obtained according to NASCET criteria. A dose lowering technique was utilized adhering to the principles of ALARA. CT DOSE: 1164.48 mGy.cm FINDINGS: Bilateral deep brain stimulators are present. The left vertebral artery is dominant and the right vertebral artery predominantly terminates in pica, anatomic variant. Intracranial internal car otid arteries are widely patent. Basilar artery is widely patent. The anterior, middle, and posterior cerebral arteries are patent bilaterally. No intracranial aneurysm seen. The left transverse sinus i s not significantly opacified. This could represent congenital atresia or chronic stenosis. Otherwise the cerebral venous sinuses opacify normally. IMPRESSION: No significant arterial narrowing or occlusion seen in the brain. ACT 112: Negative or not required by law. The above report was generated using voice recognition software. It may contain grammatical, syntax o r spelling errors. Electronically signed by: Vin Saldana M.D. 09/25/2024 10:04 AM
--- NOTE | 2024-09-25 10:13 | CT Scan Report ---
CT head/brain wo con CLINICAL HISTORY: 83 years-old Male with parkinsons, dbs, left facial weakness. Acute weakness with stroke like symptoms TECHNIQUE: Multiple axial CT images of the head were obtained without contrast. A dose lowering tech nique was utilized adhering to the principles of ALARA. COMPARISON: CTA head and neck of same day, head CT 03/28/2023 FINDINGS: Bilateral electrodes/stimulator leads are in place from a right frontal approach. These terminate in the thalami. There is age-related involutional change noting mild subcortical and periventricular sandoval roangiopathic disease. There is no hemorrhage, mass effect, or evidence of acute territorial ischemia by CT criteria. Schwartz-white matter differentiation is preserved. No extra-axial fluid collection is s een. The calvarium is intact. Mastoid air cells are clear. Mild mucosal thickening of the ethmoid air sheree ls. Soft tissues and orbits are unremarkable with prior bilateral lens repair. IMPRESSION: 1. No acute intracranial abnormality. 2. Chronic appearance of the brain. ACT 112: Negative or not required by law. The above report was generated using voice recognition software. It may contain grammatical, syntax o r spelling errors. Electronically signed by: Prashanth Elliott M.D. 09/25/2024 10:10 AM
--- NOTE | 2024-09-25 10:18 | CT Scan Report ---
CT angio neck with con CLINICAL HISTORY: 83 years-old Male with parkinsons, dbs, left facial weakness. Acute strokelike s ymptoms COMPARISON STUDY: CTA head of same day TECHNIQUE: Following the IV administration of 112 mL of Optiray, CT angiogram of the neck was perform ed from the aortic arch to the skull base. Images are reviewed in the axial, sagittal, and coronal pl anes. 3-D MIPS images are created and assessed. IV contrast was administered without complication. Al l measurements were calculated based on NASCET criteria. A dose lowering technique was utilized adhe ring to the principles of ALARA. FINDINGS: Three-vessel morphology of the thoracic arch. There is patency of the innominate and imaged subclavia n arteries. The common carotid arteries are patent. Moderate atherosclerosis of the carotid bulbs wit hout significant stenosis. The internal carotid arteries are patent. Dominant left vertebral artery. Vertebral arteries are patent. No aneurysm, dissection, high-grade stenosis or arterial occlusion. Cervical spinal fusion hardware. Battery packs project over the chest with neurostimulator leads exte nding into the brain. Lung apices are clear. Numerous subcentimeter thyroid nodules. No pathologicall y enlarged lymph nodes. IMPRESSION:Unremarkable CTA of the neck. ACT 112: Negative or not required by law. The above report was generated using voice recognition software. It may contain grammatical, syntax o r spelling errors. Electronically signed by: Prashanth Elliott M.D. 09/25/2024 10:16 AM
[2024-09-25 10:32] LABS: Partial Thromboplastin Time 27 Seconds (21-31); Prothrombin Time 11.1 Seconds (9.0-12.0)
--- OUTSIDE RECORDS SUMMARY | 2024-09-25 10:44 | External Medical Summary | Summary of Care ---
Author Name Unknown Organization [facility] Address [address] [facility] [place] [address] Phone [phone] Care Team Providers Care Boxing Promoter Name Role Phone Berhane Garcia MD Primary Care Provider [phone] Reason for Visit * Reason Comments Follow Up 6-8 week follow up * Precert (Within 10 days (routine)) - Authorized Specialty Diagnoses / Procedures Referred By Maile moscoso Referred To Contact Ophthalmology Diagnoses Retinal neovascularization, unspecified, left eye Procedures ND BEVACIZUMAB INJECTION ND INTRAVITREAL NJX PHARMACOLOGIC AGT SPX Chau Paulino DO [address] [place] [address] Phone: tel: fax: Referral ID Status Reason Start Date Expiration Date V isits Requested Visits Authorized [id number] Authorized Precert 02/02/2023 07/31/2099 [id number] Encounter Details Date Type Department Care Team (Late st Contact Info) Description 09/18/2024 2:00 PM EST Office Visit Ophthalmology, [facility] [address] [place] [address] Chau Paulino DO [address] [place] [address] 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 60 Cap 5 11/05/2014 Active carbidopa-levod opa 25-100 mg per tab (SINEMET) 25-100 MG per tablet 1 Tablet in the morning. One tab Up to three times daily Adjust dose per activity. Active Mirtazapine 15 MG Oral Tablet Take 1 Tablet by mouth at bedtime. Active Polyethylene Glycol 3350 17 GM/SCOOP Oral Powder Take 17 g by mouth as needed. Active tamsulosin (FLOMAX) 0.4 MG Capsule Take 1 Capsule by mouth in the morning. Active Vitamin D, Cholecalciferol , 1000 UNITS CAPS Take 2 Capsules by mouth in the morning. Active donepezil (ARICEPT) 10 MG Tablet Take 1 Tab by mouth daily. Take with largest meal of the day. 30 Tab 5 10/19/2017 Active sertraline (ZOLOFT) 50 MG Tablet Take 1 Tablet by mouth in the morning. Active Famotidine 20 MG Oral Tablet (Pepcid) Take 1 Tablet by mouth as needed. Active Vitamin B-12 1000 MCG Oral Tablet (Cyanocobalamin ) Take 1 Tablet by mouth in the morning. Active Ferrous Gluconate 240 (27 Fe) MG Oral Tablet Take 1 Tablet by mouth in the morning. 12/29/2022 Active Donepezil HCl 5 MG Oral Tablet (Aricept) 1 Tablet in the morning. 01/11/2024 Active Solifenacin Succinate 10 MG Oral Tablet (VESIcare) Take 1 Tablet by mouth in the morning. 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 documented as of this encounter (statuses as of 09/18/2024) Social History Tobacco Use Types Packs/Day Years Used Date Smoking Tobacco: Former Smokeless Tobacco: Never Comments:quit 30 years ago Alcohol Use Standard Drinks/Week Comments Yes 0 (1 standard drink = 0.6 oz pur e alcohol) socially-wine daily Sex and Gender Information Value Date Recorded Sex Assigned at Not on file Legal Sex Male 4:45 AM EST Gender Identity Male 11/11/2023 9:52 AM EDT Sexual Orientation Not on file documented as of this encounter Progress Notes * Chau Paulino, - 09/18/2024 2:00 PM EST [facility] [place] Nursing Notes: Deanne Mclean LPN 09/18/24 1408 Signed Santi Childress is a 83 year old year old male who presents for MNV/AMD OU. Last Office Visit: 07/24/2024 (in office), Visit date not found (telemedicine) Patient currently states no change in vision. Are you diabetic? No Do you drive? no OCT image(s) of both eyes acquired and filed/scanned into chart. Base Eye Exam Visual Acuity (Snellen - Linear) Right Left Dist cc 20/50 +2 20/60 -1 Dist ph cc NI NI Correction: Glasses Tonometry (Tonopen, 2:07 PM) Right Left Pressure 20 15 Pupils Pupils APD Right PERRL None Left PERRL None Visual Martienz (Counting fingers) Right Left Full Full Extraocular Movement Right Left Full, Ortho Full, Ortho Neuro/Psych Oriented x3: Yes Dilation Both eyes: 0.5% Proparacaine @ 2:06 PM Dilation #2 Both eyes: 1.0% Mydriacyl, 2.5% Phenylephrine @ 2:06 PM Dilation Comments Patient cautioned that effects of dilation may last 2-7 hours dependant upon individual reaction. It was discussed that driving while dilated is not recommended. EXTERNAL: The ocular adnexae are unremarkable. SLE: Lids/Lashes: wnl OU Conjunctiva/Sclera: quiet OU Cornea: clear OU Anterior Chamber: deep and quiet OU Iris: normal OU; no NVI OU Lens: PCIOL OU s/p YAG PC OU Dilated fundus exam OD: vitreous: clear optic nerve: 0.2, no edema/pallor/NVD macula: +ERM, mnv vessels: wnl periphery: wnl, no RT/RD Dilated fundus exam OS: vitreous: clear optic nerve: 0.2, no edema/pallor/NVD macula: mnv vessels: wnl periphery: wnl, no RT/RD OCT Interpretation: OD: +ERM, resolved srf/irf - STABLE, prior STABLE, prior STABLE, prior aimproved, prior worse, prior improved 62um, prior new/WORSE OS: no ERM overlying central macula, some latter-day of foveal depression, resolved CME/shrm - improved 220um prior worse 207um prior STABLE, prior STABLE, prior improved 24um prior worse, prior worse, prior improved, prior improved 136um prior stable A/P: 1. MNV/AMD OU OD: -new wet OD 06/15/2023 -Avastin OD 11/10/23, 08/08/23, 06/15/2023 ->6 months, went 12 weeks -An examination for this condition was completed which is unrelated to the procedure that was performed today -monitor OS: -Avastin OS 07/24/24, 11/17/23, 09/21/23, 06/27/23, 04/27/23, 03/16/23, 02/02/23 -8 weeks, has gone >6 months -pt wants prn tx 2. Epiretinal Membrane OD -mildly worse compared to MAY 2015 but pt happy w/ [facility] -no treatment indicated at this time 3. H/o pseudophakic cme OD -resolved on pred forte/durezol taper by Dr. Moncada -no recurrence 4. H/o Epiretinal Membrane OS -S/P 23G PPV/MP for ERM OS. -surgery date: 06/11/2013 5. Pseudophakia OU -by Dr. Padilla -OD: 07/03/14 -OS: 06/12/14 - s/p YAG PC OU by Dr. Pandey CC: [facility]/ Dr. Papito Frey PCP: Derek Mayberry MD F/u 6-8 weeks, OCT OU Chau Paulino DO documented in this encounter Nursing Notes * Deanne Mclean LPN - 09/18/2024 1:55 PM EST Santi Childress is a 83 year old year old male who presents for MNV/AMD OU. Last Office Visit: 07/24/2024 (in office), Visit date not found (telemedicine) Patient currently states no change in vision. Are you diabetic? No Do you drive? no OCT image(s) of both eyes acquired and filed/scanned into chart. documented in this encounter Plan of Treatment Upcoming Encounters Date Type Department Care Team (Late st Contact Info) Description 11/08/2024 1:15 PM EDT Office Visit Ophthalmology, [facility] [address] [place], [place] [address] Chau Paulino DO [address] [place] [address] Nurse Jennifer Vera Yamil [address] [place] [address] Photographer Yamil Vera [address] [place], [place] [address] 11/12/2024 3:00 PM EDT Office Visit Neurology [facility] [address] [place] [address] [place] [address] Carlito Gr MD [address] [place] [address] Scheduled Orders Name Type Priority Associated Diagnoses Orde r Schedule RETINA SCAN DIAGNOSTIC IMAGE, POSTERIOR Procedures Routine 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) Ordered: 09/18/2024 Health Maintenance Due Date Last Done Comments COVID-19 Vaccine (#1) 1945 Depression Screening 1952 DTap/Tdap Vaccines (1 - Tdap) 1960 Pneumococcal Vaccine: 50+ Ye ars (1 of 2 - PCV) 1960 Zoster Vaccines (1 of 2) 1959 Influenza Vaccine (FLU shot) (#1) 2024 023 HPV (Gardasil) Vaccine Aged Out No lo nger eligible based on patient's age to complete this topic Hepatitis B Vaccine Aged Out No longe r eligible based on patient's age to complete this topic MENINGOCOCCAL (MENACTRA/MENVEO) Aged Out No longer eligible based on patient's age to complete this topic Meningitis B Vaccine (Bexsero/Trumemba) Aged Out No longer eligible b ased on patient's age to complete this topic documented as of this encounter Medical Devices Implanted Type Area Can Piler Device Identifier Shelf Expiration Date Model / Serial / Lot Lens 14.0 Sn60wf - [id number] Implanted:Qty: 1 on 06/12/2014 at OR [facility] Left: Eye [employer] 04/30/2019 [id number].140 / [id number] / Lens 14.0 Sn60wf - [id number] Implanted:Qty: 1 on 07/03/2014 by Ramos Padilla MD at OR [facility] Right: Eye [employer] 04/30/2019 SN60WF.140 / [id number] / documented as of this encounter Visit Diagnoses Diagnosis 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 * Full Code Date Activated Date Inactivated Comments 06/12/2014 8:43 AM 06/12/2014 3:26 PM This order reflects the patients wishes and were consensually agreed upon. Care Teams Boxing Promoter Relationship Specialty Start Date End Date Berhane Garcia MD [address] [place] [address] PCP - General Internal Medicine 12/29/21 documented as of this encounter
[2024-09-25 11:18] LABS: Adenovirus PCR Not Detected (NotDetected); Bordetella parapertussis PCR Not Detected (NotDetected); Bordetella pertussis PCR Not Detected (NotDetected); Chlamydia pneumoniae PCR Not Detected (NotDetected); Coronavirus 229E PCR Not Detected (NotDetected); Coronavirus CoV-2 (COVID19)PCR Not Detected (NotDetected); Coronavirus HKU1 PCR Not Detected (NotDetected); Coronavirus NL63 PCR Not Detected (NotDetected); Coronavirus OC43PCR Not Detected (NotDetected); Human Metapneumovirus PCR Not Detected (NotDetected); Influenza A PCR Not Detected (NotDetected); Influenza B PCR Not Detected (NotDetected); Mycoplasma pneumoniae PCR Not Detected (NotDetected); Parainfluenza Virus 1 PCR Not Detected (NotDetected); Parainfluenza Virus 2 PCR Not Detected (NotDetected); Parainfluenza Virus 3 PCR Not Detected (NotDetected); Parainfluenza Virus 4 PCR Not Detected (NotDetected); Respiratory Syncytial VirusPCR Not Detected (NotDetected); Rhinovirus/Enterovirus PCR Not Detected (NotDetected)
--- NOTE | 2024-09-25 12:02 | History & Physical Report ---
<Statement entered by Chester Whitney DO - 09/25/24 15:18> I have seen and examined the patient and have discussed the case with the advance practice provider. I have reviewed the advanced practitioner's documentation, and I agree with, and take responsibility for that plan of care. Reviewed outside EMR, notes from outpatient neurology both within [facility] and [facility]. Patient evaluated while still in the ED, at bedside. feels that he is essentially back to his baseline with the exception of possibly still a mild left facial droop. Reviewed plan for observation and telemetry monitoring. Also reviewed dual antiplatelet treatment for 21 days then continuing aspirin. and patient agreeable to the plan of ongoing monitoring. Reviewed plan of care with RADHA as outlined below I spent a total of 22 minutes coordinating, documenting, and providing care for this patient excluding time spent by another provider/QHP. Date of Service September 25, 2024 Assessment & Plan (1) Stroke-like symptoms: (2) Parkinson disease: (3) Elective surgery: (4) Neurogenic claudication due to lumbar spinal stenosis: Plan Hx of Parkinsons disease s/p Deep Brain Stimulator/Neurotransmitter in place since 2017 Stroke Like Symptoms: left sided facial droop, left arm weakness - Obs med tele - Stroke order set completed, no indication for thrombolytic as sx started last night around 9pm - CTA head and neck reviewed and is negative - MRI brain wo contrast was discussed with pt as with deep brain stimulator- takes hours of time to return to baseline with turning off the stimulator prior to imaging and then having return of normal. - Will give aspirin full dose now - Check Echo, never had one previously - Consider outpt zio patch or holter monitor if any cardiac abnormalities - Will allow permissive hypertension with SBP 140-170 - Neurology consulted; - Follows with Neuro [facility] routinely and has upcoming appt October 17 - PT/OT consults placed - Cont home meds and give first dose now - Neg resp viral panel - UA pending Cervical spondylosis Lumbar Stenosis s/p decompression fusion - Hx of such, stable. DVT ppx: teds, scds Lines: 1 FEN/GI: Heart healthy, easy to chew CODE: Full Dispo: From home, likely to remain in the hospital x 1-2 days I spent a total of 75 minutes with greater than 50% of that time face to face with the patient, personally reviewing all current laboratories, imaging studies, past medication reconciliation, outpatient chart review, and discussion with specialists to collaborate care for the patient excluding time spent in the performance of separately billed services or time spent by another provider/QHP. Please see attending documentation for corrections and/or additions. History of Present Illness Chief Complaint: Left sided facial weakness Primary Care Provider: [facility] This is an 83 yo M with PMhx of Parkinsons disease s/p placement of deep brain stimulator/neurotransmitter in 2016, cervical spondylosis s/p C3-C6 compression, C3-C4, C4-C5 corpectomy, ACDF and screws. He had lumbar spine surgery on 01/15 and epidural injections in September 2022. Follows with [facility] neurology as an outpatient routinely, last seen evening May 2024. Patient also has periodically had the stimulator manipulated by [facility] staff, was switched from [employer] to [employer] on 12/03/22. He is on antiparkinson medication with only single Sinemet 25/100/day, participates in aquatherapy, uses walker, does a lot of physical therapy, and resides at [facility]. Pts is present at bedside and supports the history. Symptoms started last evening, last time known well was before 9pm. He had difficulty standing up this morning and had worsening Left sided arm weakness as well as left sided facial asymmetry/droop. Left sided facial droop is noted by the ER physician but with more effort is improved, at the time of my visit he still has slight left sided facial droop as well but no weakness with upper extremity or difficulty moving the left arm. He Typically the patient works with PT/OT on a routine basis every week as well as speech therapy. He has had videofluoroscopy's in the past. She knows that the left-sided facial droop is a new acute finding as he participates in his speech at least weekly at [facility]. He typically ambulates with the use of a walker. Patient can also get himself dressed and bathe for the most part without assistance. He sometimes needs help putting on pants or socks but is working with occupational therapy for such. 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 Discussion was held regarding MRI for assessment of stroke workup, at this time they declined MRI imaging due to the need to turn off his deep brain stimulator prior to the evaluation and significant parkinsonian syndromes that he would develop with the with delay in turning it back on. He does not have any acute findings on CT of the head/neck today. Electrolytes are within normal ranges. Negative respiratory [employer]. Urinalysis is pending. Patient received 1 L fluids in the ER. Allergies Allergy/AdvReac Type Severity Reaction Status Date / Time Antiseptic solution Allergy Intermediate Severe Uncoded 07/04/23 10:21 skin reaction/sensitivity with prior preop cleanser Home Medications Medication Instructions Recorded Confirmed Type amantadine HCl 100 mg tablet 100 mg PO QAM 12/31/21 09/25/24 History lpqxaev-uvyywwtgafqhw-ukithiht 250 1 tab PO Q6H PRN Pain 12/31/21 09/25/24 History mg-250 mg-65 mg tablet (Excedrin Extra Strength) carbidopa 25 mg-levodopa 100 mg 1 tab PO BID 12/31/21 09/25/24 History tablet cholecalciferol (vitamin D3) 50 50 mcg PO QAM 12/31/21 09/25/24 History mcg (2,000 unit) capsule (Vitamin D3) docusate sodium 100 mg capsule 100 mg PO BID PRN Constipation 12/31/21 09/25/24 History donepezil 10 mg tablet 15 mg PO HS 12/31/21 09/25/24 History mirtazapine 15 mg tablet (Remeron) 15 mg PO HS 12/31/21 09/25/24 History simvastatin 10 mg tablet 0 mg PO PM 12/31/21 09/25/24 History tamsulosin 0.4 mg capsule 0.4 mg PO QPM 12/31/21 09/25/24 History ferrous sulfate 27 mg iron tablet 27 mg PO DAILY 03/30/23 09/25/24 History mecobalamin (vitamin B12) 5,000 5,000 mcg PO DAILY 03/30/23 09/25/24 History mcg disintegrating tablet sertraline 50 mg tablet 50 mg PO DAILY 03/30/23 09/25/24 History solifenacin 10 mg tablet (Vesicare) 10 mg PO DAILY #30 tabs 04/11/24 09/25/24 Rx donepezil 5 mg tablet 15 mg PO HS 09/25/24 09/25/24 History Past Med/Surg History Problem List (Updated 09/25/24 @ 12:05 by Malissa Nguyễn PA-C) Stroke-like symptoms Urinary urgency Parkinson disease Neurogenic claudication due to lumbar spinal stenosis Encounter for pre-operative examination Trochanteric bursitis of left hip Hip flexor tendinitis Loss of balance Hip contracture Medical History Anxiety Cancer BCC Cervical stenosis of spinal canal Enlarged prostate Hyperlipidemia Lumbar stenosis Migraine Hx Parkinson's disease Follows with Dr. Margo Macedo ([facility]) Deep brain stimulator ([employer], Will bring remote AM DOS) [employer] rep per pt > Tiffani Jewell, P: [phone] Surgical History Elective surgery PLACEMENT DEEP BRAIN STIMULATOR (2016) REPLACEMENT BATTERIES (2020) History of cervical spinal surgery C4 corpectomy, ACDF C5-7 (02/05/16): MAC#3, ETT 8 at [facility]. Mild, asymptomatic post-op tachycardia + also sore throat. Discharged on POD 3 without further issue. History of colonoscopy Family History Father Family history of diabetes mellitus Uncle Family history of diabetes mellitus Social History (Updated 12/31/21 @ 11:19 by Loni Hoover RN) Smoking Status: Never smoker Second Hand Exposure: Yes; Do You Dip or Chew Tobacco: No; Hx Alcohol Use: No Hx Substance Use: No Preferred Language: Tamazight Communication Ability: Effective Mechanotherapist Required: No Beliefs That Will Affect Care: None marital status: Current Living Situation: Spouse Current Living Situation Comment: [facility] current occupational status: retired current occupation: RETIRED PHARMACIST Feels Safe at Home: Yes Assistive Devices: Walker Review of Systems Review of Systems: Constitutional: No fever, sweats or chills Eyes: No diplopia, no worsening or blurred vision ENT: normal hearing, no trouble swallowing Respiratory: No cough, sputum, dyspnea at rest or on exertion Cardiovascular: No chest pain, tightness or palpitations Abdomen: No pain, nausea, vomiting, diarrhea or constipation Musculoskeletal: No joint pain, calf pain, swelling Neurologic: As per HPI, + left side facial droop, + left arm weakness, no numbness/tingling, + uses walker , + parkinsons with deep brain stimulator Psychiatric: No anxiety or depression Skin: No rash or itch Physical Exam Physical Exam: General: awake, alert, no apparent distress, elderly white male Head: Normocephalic, atraumatic, + left sided facial droop with mouth noted at baseline and with smiling ENT: PERRL, EOMI, no pharyngeal exudate, mucous membranes moist Chest: Clear to auscultation, on room air, no adventitious breath sounds Cardiac: Regular rate and rhythm, no murmur, no JVD, normal peripheral pulses, good capillary refill Abdominal: NABS x 4 quadrants, soft, nondistended, nontender to palpation, no rebound or guarding Extremities: Normal inspection, no peripheral edema or erythema, calfs nontender to palpation Psych: Normal mood and affect Neuro: AAO x to month and year, at bedside, strength intact bilaterally and rated 5/5, Negative pronator drift, able to do heel to mendieta testing, can perform finger touch testing to mine, no gross motor deficits, speech is clear, no peripheral sensory deficits, + left sided facial droop Results & Data Results & Data Vital Signs (Past 12 Hours) Vital Signs Temp Pulse Resp BP Pulse Ox O2 Del Method 09/25/24 10:30 118/68 09/25/24 10:30 65 97 09/25/24 10:03 64 22 99 09/25/24 10:00 100/77 09/25/24 09:54 74 99 09/25/24 09:03 70 98 09/25/24 09:00 121/75 09/25/24 08:52 64 09/25/24 08:50 36.7 C 64 16 114/86 98 Room Air Laboratory Results 09/25/24 09/25/24 09/25/24 09:23 09:13 09:00 WBC 4.80 RBC 4.38 L Hgb 14.0 POC Hgb 13.6 L Hct 39.3 L POC Hct 40 L MCV 89.7 MCH 32.0 MCHC 35.6 RDW Std Deviation 39.9 RDW Coeff of [place] 12.1 Plt Count 164 MPV 9.1 L Immature Gran % (Auto) 0.2 Neut % (Auto) 71.7 Lymph % (Auto) 14.4 Candler % (Auto) 12.7 Eos % (Auto) 0.6 Baso % (Auto) 0.4 Neut # (Auto) 3.44 Lymph # (Auto) 0.69 L Candler # (Auto) 0.61 H Eos # (Auto) 0.03 Baso # (Auto) 0.02 Immature Gran # (Auto) 0.01 PT 11.1 INR 1.0 APTT 27 PTT Ratio 1.0 POC Sodium 139 Sodium 138 POC Potassium 4.0 Potassium 4.0 POC Chloride 105 Chloride 106 Carbon Dioxide 27 POC Total CO2 23 L Anion Gap 5 POC Anion Gap 16.0 POC BUN 19 H BUN 20 Creatinine 1.18 POC Creatinine 1.3 Est Cr Clr Drug Dosing 42.0 eGFR 61.61 BUN/Creatinine Ratio 16.9 Glucose 98 POC Glucose (other) 97 Calcium 8.8 POC Ioniz Calcium Tamika 1.14 Magnesium 2.1 Total Bilirubin 0.6 AST 14 ALT 12 Alkaline Phosphatase 103 Troponin I High Sens 16.0 Total Protein 6.4 Albumin 4.0 Globulin 2.4 L Albumin/Globulin Ratio 1.7 Adenovirus (PCR) Not Detected B. pertussis DNA (PCR) Not Detected B.parapertussis DNA PCR Not Detected C. pneumoniae DNA (PCR) Not Detected Coronavirus OC43 (PCR) Not Detected Coronavirus HKU1 (PCR) Not Detected Coronavirus 229E (PCR) Not Detected SARS-CoV-2 (PCR) Not Detected Coronavirus NL63 (PCR) Not Detected Human Metapneumovir PCR Not Detected Influenza Type A (PCR) Not Detected Influenza Type B (PCR) Not Detected M. pneumoniae (PCR) Not Detected Parainfluenza 1 (PCR) Not Detected Parainfluenza 2 (PCR) Not Detected Parainfluenza 3 (PCR) Not Detected Parainfluenza 4 (PCR) Not Detected RSV (PCR) Not Detected Entero/Rhino (PCR) Not Detected Diagnostic Findings Chest X-Ray 09/25/24 09:18 XR chest 1V portable CLINICAL HISTORY: neuro deficit, acute stroke suspected COMPARISON STUDY: 01/01/2022 FINDINGS: Bilateral neuro stimulators with leads off the field of view superiorly again seen. Heart size and pulmonary vasculature are normal. No effusion, consolidation, or pneumothorax. IMPRESSION: No acute findings. ACT 112: Negative or not required by law. Electronically signed by: Vin Saldana M.D. 09/25/2024 9:[address] 09/25/24 09:18 CT head/brain wo con CLINICAL HISTORY: 83 years-old Male with parkinsons, dbs, left facial weakness. Acute weakness with stroke like symptoms TECHNIQUE: Multiple axial CT images of the head were obtained without contrast. A dose lowering technique was utilized adhering to the principles of ALARA. COMPARISON: CTA head and neck of same day, head CT 03/28/2023 FINDINGS: Bilateral electrodes/stimulator leads are in place from a right frontal approach. These terminate in the thalami. There is age-related involutional change noting mild subcortical and periventricular microangiopathic disease. There is no hemorrhage, mass effect, or evidence of acute territorial ischemia by CT criteria. Schwartz-white matter differentiation is preserved. No extra-axial fluid collection is seen. The calvarium is intact. Mastoid air cells are clear. Mild mucosal thickening of the ethmoid air cells. Soft tissues and orbits are unremarkable with prior bilateral lens repair. IMPRESSION: 1. No acute intracranial abnormality. 2. Chronic appearance of the brain. ACT 112: Negative or not required by law. The above report was generated using voice recognition software. It may contain grammatical, syntax or spelling errors. Electronically signed by: Prashanth Elliott M.D. 09/25/2024 10:10 AM Head CTA 09/25/24 09:18 CT angio head w con CLINICAL HISTORY: parkinsons, dbs, left facial weakness. COMPARISON STUDY: None TECHNIQUE: Unenhanced axial CT scan of the brain is performed. Subsequently, f ollowing the IV administration of 112 cc of Optiray, CT angiogram of the brain was performed from the skull base to the vertex. Images are reviewed in the axial, sagittal, and coronal planes. 3-D MIPS images are created and assessed. IV contrast was administered without complication. All measurements were obtained according to NASCET criteria. A dose lowering technique was utilized adhering to the principles of ALARA. CT DOSE: 1164.48 mGy.cm FINDINGS: Bilateral deep brain stimulators are present. The left vertebral artery is dominant and the right vertebral artery predominantly terminates in pica, anatomic variant. Intracranial internal carotid arteries are widely patent. Basilar artery is widely patent. The anterior, middle, and posterior cerebral arteries are patent bilaterally. No intracranial aneurysm seen. The left transverse sinus is not significantly opacified. This could represent congenital atresia or chronic stenosis. Otherwise the cerebral venous sinuses opacify normally. IMPRESSION: No significant arterial narrowing or occlusion seen in the brain. ACT 112: Negative or not required by law. The above report was generated using voice recognition software. It may contain grammatical, syntax or spelling errors. Electronically signed by: Vin Saldana M.D. 09/25/2024 10:04 AM Neck CTA 09/25/24 09:18 CT angio neck with con CLINICAL HISTORY: 83 years-old Male with parkinsons, dbs, left facial weakness. Acute strokelike symptoms COMPARISON STUDY: CTA head of same day TECHNIQUE: Following the IV administration of 112 mL of Optiray, CT angiogram of the neck was performed from the aortic arch to the skull base. Images are reviewed in the axial, sagittal, and coronal planes. 3-D MIPS images are created and assessed. IV contrast was administered without complication. All measurements were calculated based on NASCET criteria. A dose lowering technique was utilized adhering to the principles of ALARA. FINDINGS: Three-vessel morphology of the thoracic arch. There is patency of the innominate and imaged subclavian arteries. The common carotid arteries are patent. Moderate atherosclerosis of the carotid bulbs without significant stenosis. The internal carotid arteries are patent. Dominant left vertebral artery. Vertebral arteries are patent. No aneurysm, dissection, high-grade stenosis or arterial occlusion. Cervical spinal fusion hardware. Battery packs project over the chest with neurostimulator leads extending into the brain. Lung apices are clear. Numerous subcentimeter thyroid nodules. No pathologically enlarged lymph nodes. IMPRESSION:Unremarkable CTA of the neck. ACT 112: Negative or not required by law. The above report was generated using voice recognition software. It may contain grammatical, syntax or spelling errors. Electronically signed by: Prashanth Elliott M.D. 09/25/2024 10:16 AM Code Status & VTE Plan Code Status Full code - discussed with pt and at bedside
[2024-09-25 12:13] LABS: Appearance Urine Clear (Clear); Bacteria Urine Automated None Seen (None Seen); Bilirubin Urine Negative (Negative); Blood Urine Negative (Negative); Cast Urine Automated 0-2 /lpf (0-2); Color Urine Yellow; Epithelial Cell Urine Auto 0-2 /hpf (0-2); Glucose Urine UA Negative (Negative); Ketones Urine Negative (Negative); Leukocyte Esterase Urine 2+ (Negative); Nitrite Urine Negative (Negative); Protein Urine Negative (Negative); RBC Urine Automated 0-2 /hpf (0-2); Specific Gravity Urine 1.041 (1.000-1.030); Urobilinogen Urine Negative (Negative); pH Urine 5.5 (4.5-7.5)
[2024-09-25] MEDS: ASPIRIN CHEW 324 MG PO STA (13:08)
[2024-09-25] MEDS ORDERED: NON-FORMULARY MEDICATION (Aspirin-Acetaminophen-Caffeine [Excedrin Extra Strength] 250-250 PO PRN (19:31)
[2024-09-25] MEDS ORDERED: PHARMACIST DISCHARGE MED REC CONSULT PRN (19:31)
[2024-09-25] MEDS ORDERED: DOCUSATE SODIUM 100 MG CAP PO PRN (19:31)
[2024-09-25] MEDS: ATORVASTATIN 40 MG TAB PO ONE (20:42)
[2024-09-25] MEDS: CARBIDOPA/LEVODOPA 25/100MG TAB PO SCH (20:44)
[2024-09-25] MEDS: DONEPEZIL HCL 5 MG TAB PO SCH (20:45)
[2024-09-25] MEDS: CLOPIDOGREL BISULFATE 75 MG TAB PO ONE (20:45)
[2024-09-25] MEDS: MIRTAZAPINE TAB 15 MG TAB PO SCH (20:50)
[2024-09-25] MEDS: TAMSULOSIN HCL 0.4 MG CAP PO SCH (20:50)
[2024-09-25] MEDS: SERTRALINE HCL 50 MG TABLET PO SCH (21:52)
[2024-09-25] MEDS: OXYBUTYNIN CHLORIDE XL 5 MG TABCR PO SCH (22:06)
[2024-09-26 07:17] LABS: Basophils # (auto) 0.02 K/uL (0.00-0.20); Basophils % (auto) 0.3 %; Eosinophils % (auto) 1.6 %; Hematocrit (blood only) 38.2 % (42.0-52.0); Hemoglobin 13.5 g/dl (14.0-18.0); Immature Granulocytes # (auto) 0.02 K/uL (0.01-0.20); Immature Granulocytes % (auto) 0.3 %; Lymphocytes # (auto) 1.18 K/uL (1.20-3.40); Lymphocytes % (auto) 19.4 %; Mean Corpuscular Hgb Conc 35.3 g/dL (32.0-36.0); Mean Corpuscular Volume 90.5 fL (80.0-100.0); Mean Platelet Volume 9.2 fL (9.4-12.4); Monocytes # (auto) 0.92 K/uL (0.11-0.59); Monocytes % (auto) 15.1 %; Neutrophils # (auto) 3.84 K/uL (1.40-6.50); Neutrophils % (auto) 63.3 %; Platelet Count 152 K/uL (130-400); RDW Coefficient of Variation 12.2 % (11.5-14.5); RDW Standard Deviation 39.9 fL (36.4-46.3); Red Blood Count 4.22 M/uL (4.70-6.10); White Blood Count 6.08 K/ul (4.8-10.8)
[2024-09-26 07:28] LABS: BUN Creatinine Ratio 17.3 (10-20); Calcium 8.2 mg/dl (8.6-10.3); Chol HDL Ratio 4.6 (0-5); Creatinine Clr Calc Pharmacy 47.6 ml/min
[2024-09-26] MEDS ORDERED: OXYBUTYNIN CHLORIDE XL 5 MG TABCR PO SCH (09:00)
[2024-09-26] MEDS: AMANTADINE HCL 100 MG CAPSULE PO SCH (09:06)
[2024-09-26] MEDS: FERROUS SULFATE 325 MG TAB PO SCH (09:09)
[2024-09-26] MEDS: ASPIRIN 81 MG ECTAB PO SCH (09:09)
[2024-09-26] MEDS: CHOLECALCIFEROL 25 MCG (1000 UNITS) TAB PO SCH (09:10)
[2024-09-26] MEDS: CLOPIDOGREL BISULFATE 75 MG TAB PO SCH (09:10)
[2024-09-26] MEDS: ATORVASTATIN 40 MG TAB PO SCH (09:11)
[2024-09-26] MEDS: CYANOCOBALAMIN (B-12) 2,500 MCG TABLET PO SCH (09:12)
[2024-09-26] MEDS: ACETAMINOPHEN 325 MG TAB PO PRN (10:09)
[2024-09-26 11:08] LABS: Estimated Average Glucose 105 mg/dl; Hemoglobin A1C 5.3 % (4.5-5.6)
--- NOTE | 2024-09-26 11:29 | Neurology Consultation ---
Date of Consultation September 26, 2024 Assessment & Plan (1) Stroke-like symptoms: Suspect possible small vessel ischemic stroke Recommend continued stroke work up to include the following: Defer MRI brain until outpatient follow up with neurology Repeat CT brain without contrast Echocardiogram as part of complete stroke workup Continue frequent neurological assessments Obtain stat CT brain without contrast for any acute neurological decline Continue to monitor/control blood pressure & blood glucose Continue to monitor telemetry closely Recommend ZioPatch at DC if no evidence of arrhythmia during inpatient monitoring Continue to monitor renal and hepatic function, keep euvolemic Metabolic workup should include hgbA1c, fasting lipids Recommend DAPT for at least 3 weeks Recommend high dose statin therapy indefinitely if tolerated Ok from neurology perspective for VTE prophylaxis PT/OT/SLT to eval and treat Recommend eval for LOTTIE and consider outpatient polysomnography Telehealth Consultation Telehealth Information Telehealth Information: I performed this visit using a real-time telehealth connection between my location and the patients location ([facility]). After connecting through interactive tele-video, patient was identified by name and date of and/or wristband check.Patient (or authorized healthcare public utilities sales representative) was informed that this was a telemedicine visit and it was being conducted confidentially over secure lines. My office door was closed and no one else was present in the room with me.Patient (or authorized healthcare public utilities sales representative) provided consent to proceed with the visit, expressed an understanding of privacy and security of the telemedicine visit, and gave permission to have a hospital public utilities sales representative in the room in order to assist with the visit and to conduct portions of the visit, as needed. I informed the patient (or authorized healthcare public utilities sales representative) that I reviewed their record and presented the opportunity for them to ask any questions regarding the visit today. The patient agreed to participate. History of Present Illness Reason for Consultation: Stroke like symptoms Requesting Physician: Dr. Live Attending Physician: Rubens Live MD History of Present Illness 83yo right handed male with significant past medical hx of Parkinsons Dz for which he has implanted DBS devices presented due to concern of left facial asymmetry and left sided weakness as well as unsteady gate. He has undergone CT brain without contrast revealing no overt evidence of acute intracranial pathology. CTA head and neck reveals no evidence suggestive of large vessel occlusion or significant/flow limiting stenosis. I have performed televideo consultation. There is noted hypomimia and slowed fluency as well as decreased blink rate. He is alert & oriented; able to answer all questions appropriately, name objects on televideo monitor, repeat phrases and perform complex/embedded commands without deficit. Neurological exam is non lateralizing/nonfocal in terms of motor strength and coordination. There is continued left facial asymmetry. at bedside reports it has improved and nearly resolved. There is also noted left eye lid ptosis which is reportedly chronic. Patient and at bedside reports reluctance to undergo MRI brain due to implanted devices. Allergies Allergy/AdvReac Type Severity Reaction Status Date / Time Antiseptic solution Allergy Intermediate Severe Uncoded 07/04/23 10:21 skin reaction/sensitivity with prior preop cleanser Home Medications Medication Instructions Recorded Confirmed Type amantadine HCl 100 mg tablet 100 mg PO QAM 12/31/21 09/25/24 History rifjwmi-mapdzuefjtzki-yoscthga 250 1 tab PO Q6H PRN Pain 12/31/21 09/25/24 History mg-250 mg-65 mg tablet (Excedrin Extra Strength) carbidopa 25 mg-levodopa 100 mg 1 tab PO BID 12/31/21 09/25/24 History tablet cholecalciferol (vitamin D3) 50 50 mcg PO QAM 12/31/21 09/25/24 History mcg (2,000 unit) capsule (Vitamin D3) docusate sodium 100 mg capsule 100 mg PO BID PRN Constipation 12/31/21 09/25/24 History donepezil 10 mg tablet 15 mg PO HS 12/31/21 09/25/24 History mirtazapine 15 mg tablet (Remeron) 15 mg PO HS 12/31/21 09/25/24 History simvastatin 10 mg tablet 0 mg PO PM 12/31/21 09/25/24 History tamsulosin 0.4 mg capsule 0.4 mg PO QPM 12/31/21 09/25/24 History ferrous sulfate 27 mg iron tablet 27 mg PO DAILY 03/30/23 09/25/24 History mecobalamin (vitamin B12) 5,000 5,000 mcg PO DAILY 03/30/23 09/25/24 History mcg disintegrating tablet sertraline 50 mg tablet 50 mg PO DAILY 03/30/23 09/25/24 History solifenacin 10 mg tablet (Vesicare) 10 mg PO DAILY #30 tabs 04/11/24 09/25/24 Rx donepezil 5 mg tablet 15 mg PO HS 09/25/24 09/25/24 History Patient History Medical History Enlarged prostate Cancer BCC Anxiety Migraine Hx Hyperlipidemia Parkinson's disease Follows with Dr. Margo Macedo ([facility]) Deep brain stimulator ([employer], Will bring remote AM DOS) [employer] rep per pt > Tiffani Jewell, P: [phone] Lumbar stenosis Cervical stenosis of spinal canal Surgical History Elective surgery PLACEMENT DEEP BRAIN STIMULATOR (2016) REPLACEMENT BATTERIES (2020) History of colonoscopy History of cervical spinal surgery C4 corpectomy, ACDF C5-7 (02/05/16): MAC#3, ETT 8 at [facility]. Mild, asymptomatic post-op tachycardia + also sore throat. Discharged on POD 3 without further issue. Family History Father Family history of diabetes mellitus Uncle Family history of diabetes mellitus Social History Smoking Status: Former smoker Second Hand Exposure: Yes; Do You Dip or Chew Tobacco: No; Hx Alcohol Use: No Hx Substance Use: No Preferred Language: Australian Communication Ability: Effective Marriage Counselor Required: No Beliefs That Will Affect Care: None marital status: Current Living Situation: Spouse Current Living Situation Comment: [facility] current occupational status: retired current occupation: RETIRED PHARMACIST Feels Safe at Home: Yes Safety Concerns: Feels Safe At This Time Assistive Devices: Glasses and Walker Physical Exam Neurological Examination: Mental Status: Awake and alert. Oriented to person, place, and time. Fluency naming repetition and comprehension appear grossly intact. There is overt hypomimia, decreased blink rate and slowed fluency CN testing: I: Deferred II:Reports no changes in visual acuity III/IV/: No evidence of gaze preference, hippus, nystagmus or roving eye movements V: Facial sensation reportedly grossly intact VII: Left facial asymmetry is present Left eye ptosis is present as well/reportedly chronic VIII: Chronic hypoacusis IX/X: Palate is unable to be accurately visualized via telemedicine XI: Shoulder shrug appears symmetric/ grossly intact bilaterally XII: Tongue protrudes midline without evidence of biting Motor exam: Strength appears grossly intact/symmetric in all extremities Sensory: Sensation is reportedly grossly intact throughout Coordination: Deferred Reflexes: Deferred Gait: Deferred Results & Data Vital Signs (Past 12 Hours) Vital Signs Temp Pulse Pulse Pulse Resp BP BP 09/26/24 07:18 36.5 C 58 L 16 128/73 09/26/24 02:00 36.6 C 58 L 16 129/72 09/26/24 00:45 56 L 09/26/24 00:38 36.9 C 56 L 16 143/81 H 09/26/24 00:00 65 20 115/72 Pulse Ox O2 Del Method 09/26/24 07:18 98 Room Air 09/26/24 02:00 98 Room Air 09/26/24 00:45 09/26/24 00:38 99 Room Air 09/26/24 00:00 98 Room Air Laboratory Results Abnormal lab results 09/25/24 09/26/24 Range/Units 11:52 06:10 RBC 4.22 L (4.70-6.10) M/uL Hgb 13.5 L (14.0-18.0) g/dl Hct 38.2 L (42.0-52.0) % MPV 9.2 L (9.4-12.4) fL Lymph # (Auto) 1.18 L (1.20-3.40) K/uL [place] # (Auto) 0.92 H (0.11-0.59) K/uL Calcium 8.2 L (8.6-10.3) mg/dl Ur Specific [place] 1.041 H (1.000-1.030) Ur Leukocyte Esterase 2+ H (Negative) Urine WBC (Auto) 6-10 H (0-5) /hpf Medications Administered Home Medications Medication Instructions Recorded Confirmed Last Taken amantadine HCl 100 mg tablet 100 mg PO QAM 12/31/21 09/25/24 09/24/24 plbdnfi-iyllbwrqvoqjp-frmsdhzp 250 1 tab PO Q6H PRN Pain 12/31/21 09/25/24 09/24/24 mg-250 mg-65 mg tablet (Excedrin Extra Strength) carbidopa 25 mg-levodopa 100 mg 1 tab PO BID 12/31/21 09/25/24 09/24/24 tablet cholecalciferol (vitamin D3) 50 50 mcg PO QAM 12/31/21 09/25/24 09/24/24 mcg (2,000 unit) capsule (Vitamin D3) docusate sodium 100 mg capsule 100 mg PO BID PRN Constipation 12/31/21 09/25/24 09/24/24 donepezil 10 mg tablet 15 mg PO HS 12/31/21 09/25/24 09/24/24 mirtazapine 15 mg tablet (Remeron) 15 mg PO HS 12/31/21 09/25/24 09/24/24 simvastatin 10 mg tablet 0 mg PO PM 12/31/21 09/25/24 01/14/22 21:00 tamsulosin 0.4 mg capsule 0.4 mg PO QPM 12/31/21 09/25/24 09/24/24 ferrous sulfate 27 mg iron tablet 27 mg PO DAILY 03/30/23 09/25/24 09/24/24 mecobalamin (vitamin B12) 5,000 5,000 mcg PO DAILY 03/30/23 09/25/24 09/24/24 mcg disintegrating tablet sertraline 50 mg tablet 50 mg PO DAILY 03/30/23 09/25/24 09/24/24 solifenacin 10 mg tablet (Vesicare) 10 mg PO DAILY #30 tabs 04/11/24 09/25/24 09/24/24 donepezil 5 mg tablet 15 mg PO HS 09/25/24 09/25/24 09/24/24 Active Medications Generic Name Dose Route Start Last Admin Trade Name Freq PRN Reason Stop Dose Admin Acetaminophen 650 mg 09/25/24 19:43 09/26/24 10:09 Acetaminophen 325 Mg Tab PO 10/25/24 19:42 650 mg Q4H PRN Administration Pain or Fever Amantadine HCl 100 mg 09/26/24 09:00 09/26/24 09:06 Amantadine Hcl 100 Mg Capsule PO 10/26/24 08:59 100 mg QAM KAL Administration Aspirin 81 mg 09/26/24 09:00 09/26/24 09:09 Aspirin 81 Mg Ectab PO 10/26/24 08:59 81 mg QAM KAL Administration Atorvastatin Calcium 80 mg 09/26/24 09:00 09/26/24 09:11 Atorvastatin 40 Mg Tab PO 10/26/24 08:59 80 mg QAM KAL Administration Carbidopa/Levodopa 1 tab 09/25/24 19:31 09/26/24 09:12 Carbidopa/Levodopa 25/100mg Tab PO 10/25/24 19:30 1 tab BID KAL Administration Clopidogrel Bisulfate 75 mg 09/26/24 09:00 09/26/24 09:10 Clopidogrel Bisulfate 75 Mg Tab PO 10/26/24 08:59 75 mg QAM KAL Administration Cyanocobalamin 5,000 mcg 09/26/24 09:00 09/26/24 09:12 Cyanocobalamin (B-12) 2,500 Mcg Tablet PO 10/26/24 08:59 5,000 mcg DAILY KAL Administration Donepezil HCl 15 mg 09/25/24 21:00 09/25/24 20:45 Donepezil Hcl 5 Mg Tab PO 10/25/24 20:59 15 mg HS KAL Administration Ferrous Sulfate 325 mg 09/26/24 09:00 09/26/24 09:09 Ferrous Sulfate 325 Mg Tab PO 10/26/24 08:59 325 mg DAILY KAL Administration Mirtazapine 15 mg 09/25/24 21:00 09/25/24 20:50 Mirtazapine Tab 15 Mg Tab PO 10/25/24 20:59 15 mg HS KAL Administration Oxybutynin Chloride 10 mg 09/25/24 21:00 09/25/24 22:06 Oxybutynin Chloride Xl 5 Mg Tabcr PO 10/25/24 20:59 10 mg HS KAL Administration Sertraline HCl 50 mg 09/25/24 19:31 09/26/24 09:11 Sertraline Hcl 50 Mg Tablet PO 10/25/24 19:30 50 mg DAILY KAL Administration Tamsulosin HCl 0.4 mg 09/25/24 21:00 09/25/24 20:50 Tamsulosin Hcl 0.4 Mg Cap PO 10/25/24 20:59 0.4 mg QPM KAL Administration Vitamin D 50 mcg 09/26/24 09:00 09/26/24 09:10 Cholecalciferol 25 Mcg (1000 Units) Tab PO 10/26/24 08:59 50 mcg QAM KAL Administration
--- NOTE | 2024-09-26 14:11 | CT Scan Report ---
CT head/brain wo con CLINICAL HISTORY: left facial droop, follow up CT head. TECHNIQUE: Multiple axial CT images of the head were obtained without contrast. A dose lowering tech nique was utilized adhering to the principles of ALARA. CT DOSE: 625.8 mGy.cm COMPARISON: 09/25/2024 FINDINGS: Stable deep brain stimulators. No intracranial hemorrhage seen. No mass effect, midline shelby ft, or hydrocephalus. No skull fracture seen. IMPRESSION: No acute findings. ACT 112: Negative or not required by law. The above report was generated using voice recognition software. It may contain grammatical, syntax o r spelling errors. Electronically signed by: Vin Saldana M.D. 09/26/2024 2:09 PM
--- NOTE | 2024-09-26 14:23 | Pharmacy Report ---
- Date of Service September 26, 2024 - Pharmacy CVA/TIA Medication Review Medications to Prevent Stroke handout has been added to the patients discharge packet. Antiplatelet(s) * Plavix 75mg and Aspirin 81 mg PO once daily Cholesterol * High intensity statin: atorvastatin 80 mg daily DVT Prophylaxis * Provider to order heparin if pt stays >24 hours Therapeutic Anticoagulation * No history of Afib/Aflutter noted, pt to wear Zio patch Type 2 Diabetes * Patient does not have T2DM
[2024-09-26] MEDS ORDERED: STROKE PATIENT DISCHARGE STA ×2 (14:36→16:13)
--- NOTE | 2024-09-26 14:43 | Discharge Summary ---
Date of Service September 26, 2024 Admission HPI Per Admitting Provider This is an 83 yo M with PMhx of Parkinsons disease s/p placement of deep brain stimulator/neurotransmitter in 2016, cervical spondylosis s/p C3-C6 compression, C3-C4, C4-C5 corpectomy, ACDF and screws. He had lumbar spine surgery on 01/15 and epidural injections in September 2022. Follows with [facility] neurology as an outpatient routinely, last seen evening May 2024. Patient also has periodically had the stimulator manipulated by [facility] staff, was switched from [employer] to [employer] on 12/03/22. He is on antiparkinson medication with only single Sinemet 25/100/day, participates in aquatherapy, uses walker, does a lot of physical therapy, and resides at [facility]. Pts is present at bedside and supports the history. Symptoms started last evening, last time known well was before 9pm. He had difficulty standing up this morning and had worsening Left sided arm weakness as well as left sided facial asymmetry/droop. Left sided facial droop is noted by the ER physician chiqui ut with more effort is improved, at the time of my visit he still has slight left sided facial droop as well but no weakness with upper extremity or difficulty moving the left arm. He Typically the patient works with PT/OT on a routine basis every week as well as speech therapy. He has had videofluoroscopy's in the past. She knows that the left-sided facial droop is a new acute finding as he participates in his speech at least weekly at [facility]. He typically ambulates with the use of a walker. Patient can also get himself dressed and bathe for the most part without assistance. He sometimes needs help putting on pants or socks but is working with occupational therapy for such. 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 Discussion was held regarding MRI for assessment of stroke workup, at this time they declined MRI imaging due to the need to turn off his deep brain stimulator prior to the evaluation and significant parkinsonian syndromes that he would develop with the with delay in turning it back on. He does not have any acute findings on CT of the head/neck today. Electrolytes are within normal ranges. Negative respiratory [employer]. Urinalysis is pending. Patient received 1 L fluids in the ER. Admission Exam Per Admitting Provider General: awake, alert, no apparent distress, elderly white male Head: Normocephalic, atraumatic, + left sided facial droop with mouth noted at baseline and with smiling ENT: PERRL, EOMI, no pharyngeal exudate, mucous membranes moist Chest: Clear to auscultation, on room air, no adventitious breath sounds Cardiac: Regular rate and rhythm, no murmur, no JVD, normal peripheral pulses, good capillary refill Abdominal: NABS x 4 quadrants, soft, nondistended, nontender to palpation, no rebound or guarding Extremities: Normal inspection, no peripheral edema or erythema, calfs nontender to palpation Psych: Normal mood and affect Neuro: AAO x to month and year, at bedside, strength intact bilaterally and rated 5/5, Negative pronator drift, able to do heel to mendieta testing, can perform finger touch testing to mine, no gross motor deficits, speech is clear, no peripheral sensory deficits, + left sided facial droop Principal Diagnosis Possible TIA Discharge Exam Constitutional: Awake alert oriented x 3. Not in any distress. Respiratory: normal respiratory effort, lungs clear to auscultation, no wheeze, rales, rhonchi. Normal insp/exp effort, no accessory muscle use Cardiovascular: RRR, no murmur, no edema Vessels: no JVD or carotid bruit Chest: normal inspection of chest Abdomen: normal bowel sounds, soft, nontender, no hepatosplenomegaly Musculoskeletal: no cyanosis or clubbing, extremities motor strength 5/5 Skin: no rashes, warm and dry normal turgor Neurologic: PERRL, EOMI, accommodation nl. Questionable left sided facial asymmetry Psychiatric: A+Ox3, euthymic affect Discharge Data Allergies Allergy/AdvReac Type Severity Reaction Status Date / Time Antiseptic solution Allergy Intermediate Severe Uncoded 07/04/23 10:21 skin reaction/sensitivity with prior preop cleanser Consultations 09/25/24 12:13 ED Decision to Admit Stat 09/25/24 19:31 Consult Neurology Routine Ordered Studies 09/25/24 09:18 CT angio head w con Stat CT angio neck with con Stat CT head/brain wo con Stat 09/26/24 12:06 CT head/brain wo con Urgent Hospital Course (1) Stroke-like symptoms: Plan Patient is a 83-year-old male with past medical history of Parkinsons disease s/p placement of deep brain stimulator/neurotransmitter in 2017, cervical spondylosis s/p C3-C6 compression, C3-C4, C4-C5 corpectomy, ACDF and screws who presented to the hospital with possible left-sided facial asymmetry/droop. CT head without contrast on admission did not show acute intracranial abnormality. CTA head and neck did not show any acute finding . MRI was not able to be performed due to deep brain stimulator/neurotransmitter. Patient is started on DAPT, high-dose statin. Repeat CT head was done prior to discharge which did not show any acute stroke. Patient was discharged home on DAPT, high-dose statin with instruction to follow-up with PCP and for possible Zio patch to evaluate for arrhythmia. Please note the above document was generated using voice recognition software. It may contain grammatical, syntax or spelling errors. Any formal questions or concerns about the content, text or information contained within the body of this dictation should be directly addressed to the provider for clarification Total Time Total Time Spent Total Time Spent (In Minutes): 45 Total Time Includes: Examination of the Patient, Discharge Planning, Medication Reconciliation, Communication With Other Providers and Other Discharge Plan Discharge Items Patient Disposition: Home - Self-Care Reason For Visit: TIA Discharge Diagnosis: Possible TIA Activity: Resume your previous activity Non-emergency contact: Primary Care Provider Call non-emergency contact if: you have any medication questions and your symptoms worsen Follow-up/Referrals: Polina Hoang [Primary Care Provider] - Diet: Regular Addtl Attending Provider Instructions: You were admitted to the hospital due to concern for a stroke. You were evaluated by neurology during the hospitalization; they recommended following medication; Take Plavix for 20 more days Take aspirin 81 mg Take Lipitor 40 mg once a day Please follow-up with your primary care doctor. Please discuss with your primary care doctor regarding possible Zio patch to monitor your heart rate and rhythm to rule out arrhythmia. Pending Studies at Discharge: No Stand-Alone Forms: My [employer] of [employer], Smoking Cessation, Medications to Prevent Stroke Medications and DC Order Prescriptions: New atorvastatin 40 mg Tablet 40 mg PO QAM 30 Days Qty: 30 0RF clopidogrel 75 mg Tablet 75 mg PO QAM 20 Days Qty: 20 0RF aspirin 81 mg Tablet,Delayed Release (Dr/Ec) 81 mg PO QAM Qty: 30 0RF Continued solifenacin [Vesicare] 10 mg tablet 10 mg PO DAILY Qty: 30 11RF mecobalamin (vitamin B12) 5,000 mcg tablet,disintegrating 5,000 mcg PO DAILY ferrous sulfate 27 mg iron tablet 27 mg PO DAILY sertraline 50 mg tablet 50 mg PO DAILY amantadine HCl 100 mg Tablet 100 mg PO QAM donepezil 10 mg Tablet 15 mg PO HS Rx Instructions: Per Pharmacy: Take 10mg w/ 5mg to equal 15mg at bedtime tamsulosin 0.4 mg Capsule 0.4 mg PO QPM mirtazapine [Remeron] 15 mg Tablet 15 mg PO HS carbidopa-levodopa 25-100 mg Tablet 1 tab PO BID cholecalciferol (vitamin D3) [Vitamin D3] 50 mcg (2,000 unit) Capsule 50 mcg PO QAM Excedrin Extra Strength 250-250-65 mg Tablet 1 tab PO Q6H PRN (Reason: Pain) docusate sodium 100 mg Capsule 100 mg PO BID PRN (Reason: Constipation) donepezil 5 mg tablet 15 mg PO HS Rx Instructions: Per Pharmacy: Take 5mg w/ 10mg to equal 15mg at bedtime Admission Data Admit Date/Time: 09/25/24 13:08 Attending Provider: Rubens Live Admit Provider: Chester Whitney Primary Care Provider: Polina Hoang Other Providers: Chester Whitney; Jacob Obrien
[2024-09-26 14:47] VITALS: BP 99/63; RESP 16; TEMP 97.5; O2SAT 97
[2024-09-26 16:37] VITALS: PULSE 56
--- NOTE | 2024-09-28 22:30 | Electrocardiogram Report ---
Test Reason : Blood Pressure : */* mmHG Vent. Rate : 64 BPM Atrial Rate : 64 BPM P-R Int : 56 ms QRS Dur : 156 ms QT Int : 442 ms P-R-T Axes : 2 123 164 degrees QTcB Int : 455 ms Poor data quality, interpretation may be adversely affected Atrial-paced rhythm Right bundle branch block Abnormal ECG When compared with ECG of 01-Jan-2022 14:46, Significant artifact is now present Confirmed by Alvarado Ma ([id number]) on 09/28/2024 10:30:29 PM Referred By: Polina Hoang Confirmed By: Alvarado Ma
--- NOTE | 2024-10-01 10:00 | Pharmacy Report ---
Pharmacist Stroke Counseling - Date of Service October 01, 2024 - Scope: Pharmacy has been consulted to provide medication discharge counseling for this patient admitted with ischemic stroke as per the Pharmacist Discharge Counseling for Stroke Patients Protocol. - Medications on Discharge: Home Medications Medication Instructions Recorded Confirmed amantadine HCl 100 mg tablet 100 mg PO QAM 12/31/21 09/25/24 dvdjsst-wllwjtjtmdpkz-grcnkqmh 250 1 tab PO Q6H PRN Pain 12/31/21 09/25/24 mg-250 mg-65 mg tablet (Excedrin Extra Strength) carbidopa 25 mg-levodopa 100 mg 1 tab PO BID 12/31/21 09/25/24 tablet cholecalciferol (vitamin D3) 50 50 mcg PO QAM 12/31/21 09/25/24 mcg (2,000 unit) capsule (Vitamin D3) docusate sodium 100 mg capsule 100 mg PO BID PRN Constipation 12/31/21 09/25/24 donepezil 10 mg tablet 15 mg PO HS 12/31/21 09/25/24 mirtazapine 15 mg tablet (Remeron) 15 mg PO HS 12/31/21 09/25/24 tamsulosin 0.4 mg capsule 0.4 mg PO QPM 12/31/21 09/25/24 ferrous sulfate 27 mg iron tablet 27 mg PO DAILY 03/30/23 09/25/24 mecobalamin (vitamin B12) 5,000 5,000 mcg PO DAILY 03/30/23 09/25/24 mcg disintegrating tablet sertraline 50 mg tablet 50 mg PO DAILY 03/30/23 09/25/24 donepezil 5 mg tablet 15 mg PO HS 09/25/24 09/25/24 New Rx's Medication Instructions Recorded solifenacin 10 mg tablet (Vesicare) 10 mg PO DAILY #30 tabs 04/11/24 aspirin 81 mg tablet,delayed 81 mg PO QAM #30 tabs 09/26/24 release atorvastatin 40 mg tablet 40 mg PO QAM 30 days #30 tabs 09/26/24 clopidogrel 75 mg tablet 75 mg PO QAM 20 days #20 tabs 09/26/24 - Action: The above medications, specifically ones for stroke treatment/prophylaxis, have been reviewed in detail with the patient and/or patient food service representative(s) prior to discharge. This includes indication, common adverse reactions, drug interactions, and medication administration. Medication counseling has been employed using the teach-back method to ensure understanding. - Outcome: The patient and/or patient food service representative(s) have demonstrated understanding of the medications. Additional comments: - patient is a retired pharmacist and , Myriam Magaña, was on the call who is a retired nurse. Both demonstrated excellent understanding of DAPT and Lipitor medications. - patient did develop severe lower extremity cramping with the Lipitor. They are working on getting dose reduced this afternoon hopefully. Instructed patient to remain off Lipitor 40 mg until statin can be lowered or changed to another med in the same class - neuro follow up scheduled with [facility] later this month Thank you for allowing pharmacy to be involved in the care of this patient. Please call [phone] with any additional questions
== END 2024-09-26 17:12 | disposition home or self-care (01) ==
LOC: ED 08:41 → EDINP 08:41 → SUATTDRO 13:08 → 2S 19:32